=== PATIENT | male | born 1975 | race Caucasian/White ===

== ENCOUNTER → 2018-06-20 | Outpatient (CLI) | payer SELFPAY ==
--- NOTE | 2018-06-20 13:37 | Diagnostic Imaging Report ---
INDICATION: Chronic lower back pain. COMPARISON: None. FINDINGS: Frontal and lateral views of the lumbar spine were obtained. Alignment and vertebral heights are maintained. There is no fracture or destructive process. Multilevel degenerative disease is noted in the lumbar spine and consists primarily of multilevel facet arthropathy. Limited views of the abdomen demonstrate nonobstructive bowel gas pattern. IMPRESSION: 1. No acute fracture or dislocation of the lumbar spine. 2. Mild multilevel degenerative changes. Dictated by: Dictated on workstation # [id number]
== END ==
LOC: RAD FS 12:39
PROVIDERS: ATTEND Nurse Practitioner Family
DX: M47.816 Spondylosis without myelopathy or radiculopathy, lumbar region (principal)
CPT/HCPCS: 72100

== ENCOUNTER 2019-10-03 16:03 | Emergency (ER) | payer SELFPAY ==
[~2019-10-03] VITALS: Ht 182.8 cm; Wt 150.5 kg
[~2019-10-03 16:03] MED LIST: PARO20TA57 PO
[2019-10-03] MEDS ORDERED: NS IV 1000 ML 1,000 ML IV STA (16:10)
--- NOTE | 2019-10-03 16:13 | ED General ---
General Stated Complaint: ABD/CHEST PAIN Source of Information: Patient, Old Records, RN/MD History of Present Illness Date Seen by Provider: Oct 03, 2019 Time Seen by Provider: 16:05 Initial Comments This patient is a 44-year-old male that presents to the emerge from for epigastric discomfort after meals. States his big ongoing for some time states he only improves if he takes a lot of ibuprofen and Gas-X. Patient does have an outpatient scheduled ultrasound in 2 days. Patient states he ate about an hour to 2 hours ago and has been hurting ever since. We'll do medical evaluation treatment is needed. Timing/Duration: Changing Over Time, Getting Worse Severity: Moderate Modifying Factors: improves with Medication Associated Systoms: No Denies Symptoms, No Chest Pain, No Cough, No Diaphoresis, No Fever/Chills, No Headaches, No Loss of Appetite, No Malaise, No Nausea/Vomiting, No Rash, No Seizure, No Shortness of Air, No Syncope, No Weakness, No Other Allergies and Home Medications Allergies Coded Allergies: influenza virus vaccine ts [id number] (36 mos,up) (Unverified Allergy, Unknown, 03/14/14) neomycin (Unverified Allergy, Unknown, 03/14/14) pseudoephedrine (Unverified Allergy, Unknown, 03/14/14) triprolidine (Unverified Allergy, Unknown, 03/14/14) Home Medications Paroxetine Hcl 20 Mg Tablet, 20 MG PO DAILY, (Reported) Patient Home Medication List Home Medication List Reviewed: Yes Review of Systems Review of Systems Constitutional: No no symptoms reported; see HPI; No chills, No diaphoresis, No dizziness, No fever, No malaise, No weakness, No weight gain, No weight loss, No other EENTM: No see HPI, No no symptoms reported, No ear discharge, No hearing loss, No ear pain, No blurred vision, No double vision, No eye pain, No tearing, No vision loss, No dental problems, No hoarseness, No mouth pain, No mouth swelling, No epistaxis, No nose congestion, No nose pain, No throat pain, No throat swelling, No other Respiratory: No no symptoms reported, No see HPI, No cough, No dyspnea on exertion, No hemoptysis, No orthopnea, No phlegm, No short of breath, No stridor, No wheezing, No other Cardiovascular: No no symptoms reported, No see HPI, No chest pain, No edema, No Hx of Intervention, No palpitations, No syncope, No vascular heart diseas, No other Gastrointestinal: LUQ, RLQ, abdominal pain Musculoskeletal: No no symptoms reported, No see HPI, No back pain, No gout, No joint pain, No joint swelling, No muscle pain, No muscle stiffness, No muscle cramps, No muscle twitching, No muscle weakness, No neck pain, No other Skin: No no symptoms reported, No see HPI, No change in color, No change in hair/nails, No dryness, No hx of skin cancer, No lesions, No lumps, No pruritus, No rash, No other All Other Systems Reviewed Negative Unless Noted: Yes Past Coueblg-Dkcbgs-Gggtkf Hx Patient Social History Recent Foreign Travel: No Contact w/Someone Who Travel: No Seasonal Allergies Seasonal Allergies: Yes Past Medical History Orthopedic Anxiety, Depression Physical Exam Vital Signs Vital Signs - First Documented 10/03/19 16:06 Temp 37.0 Pulse 87 Resp 18 B/P (MAP) 132/83 (99) Pulse Ox 95 O2 Delivery Room Air Capillary Refill : Height, Weight, BMI Height: 6'" Weight: 296lbs. oz. 134.425836cc; BMI Method: General Appearance: No Apparent Distress, WD/WN Respiratory: Chest Non Tender, Lungs Clear, Normal Breath Sounds, No Accessory Muscle Use, No Respiratory Distress Cardiovascular: Regular Rate, Rhythm, No Edema, No Gallop, No JVD, No Murmur, Normal Peripheral Pulses Gastrointestinal: Normal Bowel Sounds, No Organomegaly, No Pulsatile Mass, Soft, Tenderness (in the epigastrium and right upper quadrant.) Neurologic/Psychiatric: Alert, Oriented x3, No Motor/Sensory Deficits, Normal Mood/Affect Progress/Results/Core Measures Suspected Sepsis SIRS Temperature: Pulse: Respiratory Rate: Laboratory Tests 10/03/19 16:20: White Blood Count 7.5 Blood Pressure / Mean: Laboratory Tests 10/03/19 16:20: Creatinine 1.05, Platelet Count 263, Total Bilirubin 0.3 Results/Orders Lab Results Laboratory Tests Test 10/03/19 16:20 Range/Units White Blood Count 7.5 4.3-11.0 10^3/uL Red Blood Count 5.12 4.35-5.85 10^6/uL Hemoglobin 14.8 13.3-17.7 G/DL Hematocrit 45 40-54 % Mean Corpuscular Volume 88 80-99 FL Mean Corpuscular Hemoglobin 29 25-34 PG Mean Corpuscular Hemoglobin Concent 33 32-36 G/DL Red Cell Distribution Width 14.0 10.0-14.5 % Platelet Count 263 130-400 10^3/uL Mean Platelet Volume 10.7 H 7.4-10.4 FL Neutrophils (%) (Auto) 63 42-75 % Lymphocytes (%) (Auto) 27 12-44 % Monocytes (%) (Auto) 8 0-12 % Eosinophils (%) (Auto) 2 0-10 % Basophils (%) (Auto) 0 0-10 % Neutrophils # (Auto) 4.7 1.8-7.8 X 10^3 Lymphocytes # (Auto) 2.0 1.0-4.0 X 10^3 Monocytes # (Auto) 0.6 0.0-1.0 X 10^3 Eosinophils # (Auto) 0.2 0.0-0.3 10^3/uL Basophils # (Auto) 0.0 0.0-0.1 10^3/uL Sodium Level 143 135-145 MMOL/L Potassium Level 4.1 3.6-5.0 MMOL/L Chloride Level 107 98-107 MMOL/L Carbon Dioxide Level 23 21-32 MMOL/L Anion Gap 13 5-14 MMOL/L Blood Urea Nitrogen 19 H 7-18 MG/DL Creatinine 1.05 0.60-1.30 MG/DL Estimat Glomerular Filtration Rate > 60 BUN/Creatinine Ratio 18 Glucose Level 106 H 70-105 MG/DL Calcium Level 9.2 8.5-10.1 MG/DL Corrected Calcium 8.9 8.5-10.1 MG/DL Total Bilirubin 0.3 0.1-1.0 MG/DL Aspartate Amino Transf (AST/SGOT) 25 5-34 U/L Alanine Aminotransferase (ALT/SGPT) 37 0-55 U/L Alkaline Phosphatase 110 40-136 U/L Total Protein 7.5 6.4-8.2 GM/DL Albumin 4.4 3.2-4.5 GM/DL My Orders Orders - TYE ABDI MD Cbc With Automated Diff (10/03/19 16:10) Comprehensive Metabolic Panel (10/03/19 16:10) Ed Iv/Invasive Line Start (10/03/19 16:10) Ns Iv 1000 Ml (Sodium Chloride 0.9%) (10/03/19 16:10) Ondansetron Injection (Zofran Injectio (10/03/19 16:15) Ketorolac Injection (Toradol Injection) (10/03/19 16:23) Ketorolac Injection (Toradol Injection) (10/03/19 16:30) Medications Given in ED Current Medications Medications Dose Ordered Sig/Fiorella Route Start Time Stop Time Status Last Admin Dose Admin Ketorolac Tromethamine 15 mg ONCE ONCE IVP 10/03/19 16:30 10/03/19 16:31 DC 10/03/19 16:30 15 MG Ondansetron HCl 4 mg ONCE ONCE IVP 10/03/19 16:15 10/03/19 16:16 DC 10/03/19 16:29 4 MG Vital Signs/I&O 10/03/19 16:06 Temp 37.0 Pulse 87 Resp 18 B/P (MAP) 132/83 (99) Pulse Ox 95 O2 Delivery Room Air Capillary Refill : Progress Note : Time: 17:21 Progress Note This patient is pain-free after IV Toradol. Patient has negative labs negative white count negative liver enzymes. However the patient does describe symptoms related to food most likely having gallbladder disease or cholelithiasis. Patient does have a scheduled outpatient ultrasound on Tuesday. Nursing staff informs me that the patient's family has called the emergency department are very upset because we do not have imaging available. I did have a long discussion with patient about findings. He understands that he needs to monitor his diet closely and have clear liquid diet. In the follow-up as scheduled for his outpatient ultrasound. Patient will be prescribed diclofenac as needed for pain and watch his diet closely. Patient will be discharged home with family patient states understanding all instructions. Departure Impression Primary Impression: Abdominal pain Additional Impression: Biliary colic Disposition: 01 HOME, SELF-CARE Condition: Stable Departure-Patient Inst. Decision time for Depature: 17:23 Referrals: [facility] (PCP/Family) Primary Care Physician Patient Instructions: Gallstones (DC) Add. Discharge Instructions: Encourage clear liquid diet. Take medications as instructed. Understand eating greasy of fatty food is what exacerbates her symptoms. Follow-up outpatient ultrasound as scheduled on Tuesday. Follow-up with your PCP in 2-3 days as needed. Scripts Diclofenac Sodium (Diclofenac Sodium) 75 Mg Tablet. 75 MG PO BID for 10 Days, #20 TAB 0 Refills Prov: TYE ABDI MD 10/03/19 TYE ABDI MD Oct 03, 2019 16:13
[2019-10-03] MEDS ORDERED: KETOROLAC 60 MG/2 ML VIAL IV ONE (16:15)
[2019-10-03] MEDS ORDERED: ONDANSETRON 4 MG/2 ML (SDV) Z0FRAN IVP ONE (16:15)
[2019-10-03] MEDS ORDERED: KETOROLAC 15 MG/ML VIAL ONE (16:23)
[2019-10-03 16:28] LABS: BASOPHILS % (AUTO) 0 % (0-10); EOSINOPHILS # (AUTO) 0.2 10^3/uL (0.0-0.3); EOSINOPHILS % (AUTO) 2 % (0-10); HEMATOCRIT 45 % (40-54); HEMOGLOBIN 14.8 G/DL (13.3-17.7); LYMPHOCYTES % (AUTO) 27 % (12-44); MEAN CORPUSCULAR HEMOGLOBIN 29 PG (25-34); MEAN CORPUSCULAR HGB CONC 33 G/DL (32-36); MEAN CORPUSCULAR VOLUME 88 FL (80-99); MEAN PLATELET VOLUME 10.7 FL (7.4-10.4); MONOCYTES # (AUTO) 0.6 X 10^3 (0.0-1.0); MONOCYTES % (AUTO) 8 % (0-12); NEUTROPHILS # (AUTO) 4.7 X 10^3 (1.8-7.8); NEUTROPHILS % (AUTO) 63 % (42-75); PLATELET COUNT 263 10^3/uL (130-400); WHITE BLOOD COUNT 7.5 10^3/uL (4.3-11.0)
[2019-10-03] MEDS ORDERED: KETOROLAC 15 MG/ML VIAL IVP ONE (16:30)
[2019-10-03 16:48] LABS: CARBON DIOXIDE 23 MMOL/L (21-32); CHLORIDE 107 MMOL/L (98-107); POTASSIUM 4.1 MMOL/L (3.6-5.0); SODIUM 143 MMOL/L (135-145)
[2019-10-03 16:49] LABS: ALANINE AMINOTRANSFERASE 37 U/L (0-55); ALBUMIN 4.4 GM/DL (3.2-4.5); ALKALINE PHOSPHATASE 110 U/L (40-136); BILIRUBIN,TOTAL 0.3 MG/DL (0.1-1.0); BUN/CREATININE RATIO 18; CALCIUM 9.2 MG/DL (8.5-10.1); CREATININE SERUM 1.05 MG/DL (0.60-1.30); GFR ESTIMATED > 60; GLUCOSE 106 MG/DL (70-105); TOTAL PROTEIN 7.5 GM/DL (6.4-8.2)
--- NOTE | 2019-10-03 17:15 | NUR ---
This RN answered a phone call rec'd from patient's "" reporting she is on her way to hospital to pick him up. She quotes, "I hear you gave him some Toradol shot and refuse to do an appropriate needed radiology imaging tests so I am gonna bring my mother and we are going to get him and get down to [place] right away." "So get him ready as we know we can't come in but we are going to where someone will treat the patient with appropriate test." Pt's continues to yell and I advised her as I placed her on hold I would speak with his nurse and
--- NOTE | 2019-10-03 17:20 | NUR ---
Call has been disrupted by a hang-up. Dr went to patient's room to discuss this phone call and what was conveyed to her from him. Pt was advised liver enzymes are normal, he describes stomach issues with eating, pt has a scheduled ultrasound in [place] on Tuesday, and patient agreed he is pain free after Toradol. Pt is told everything his has called to tell staff. Dr encourages patient to follow a very strict low fat, no spice, GB restriction diet and increase fluid intake. Pt is to keep appt for GB appt. Tuesday.
[2019-10-03] MEDS ORDERED: DICL75TA2 PO (17:24)
--- NOTE | 2019-10-03 17:30 | NUR ---
called back into ER, call sent to this RN for consistancy of communication. states, "I am here in parking lot and I do not see him so send him out." The was informed the patient is walking to registration desk to sign out as he is discharged. The was told the patient has more information to share regarding the recommended outpatient GB sono which [facility] has no ultrasound dept. The patient has this test scheduled for Tuesday at [place]. The [place] ER was called by Dr Burgess and spoke with Dr Longo on duty and there is no ultrasound coverage in [facility]. The patient did become pain free after Toradol when re-assessed.
[2019-10-03 17:31] VITALS: BP 117/58
== END 2019-10-03 17:31 | disposition home or self-care (01) ==
LOC: EDUNIT# 16:03 → ER FS 16:04
DX: K80.50 Calculus of bile duct without cholangitis or cholecystitis without obstruction (principal); F41.9 Anxiety disorder, unspecified; F32.9 Major depressive disorder, single episode, unspecified; Z88.7 Allergy status to serum and vaccine; Z88.1 Allergy status to other antibiotic agents; Z88.8 Allergy status to other drugs, medicaments and biological substances
CPT/HCPCS: 36415; 80053; 85025

== ENCOUNTER 2019-10-23 20:21 | Emergency (ER) | payer OTHER ==
[~2019-10-23] VITALS: Ht 182.8 cm; Wt 149.6 kg
[~2019-10-23 20:21] MED LIST changes: +DICL75TA2 PO
[2019-10-23] MEDS ORDERED: NS IV 500 ML 500 ML IV ONE (20:42)
[2019-10-23] MEDS ORDERED: FAMOTIDINE 20MG/2ML IV (PEPCID) IV STA (20:42)
[2019-10-23] MEDS ORDERED: SERT50TA2 PO (20:43)
[2019-10-23] MEDS ORDERED: LIDOCAINE 2% VISCOUS 15 ML UDC PO ONE (20:45)
[2019-10-23] MEDS ORDERED: ANTACID SUSP 30 ML UDC (MYLANTA) PO ONE (20:45)
[2019-10-23 20:49] LABS: BASOPHILS % (AUTO) 1 % (0-10); EOSINOPHILS # (AUTO) 0.3 10^3/uL (0.0-0.3); EOSINOPHILS % (AUTO) 4 % (0-10); HEMATOCRIT 43 % (40-54); HEMOGLOBIN 14.2 G/DL (13.3-17.7); LYMPHOCYTES # (AUTO) 2.5 X 10^3 (1.0-4.0); LYMPHOCYTES % (AUTO) 32 % (12-44); MEAN CORPUSCULAR HEMOGLOBIN 29 PG (25-34); MEAN CORPUSCULAR HGB CONC 33 G/DL (32-36); MEAN CORPUSCULAR VOLUME 87 FL (80-99); MEAN PLATELET VOLUME 10.3 FL (7.4-10.4); MONOCYTES # (AUTO) 0.7 X 10^3 (0.0-1.0); MONOCYTES % (AUTO) 9 % (0-12); NEUTROPHILS # (AUTO) 4.2 X 10^3 (1.8-7.8); NEUTROPHILS % (AUTO) 55 % (42-75); PLATELET COUNT 235 10^3/uL (130-400); RED CELL DISTRIBUTION WIDTH 13.8 % (10.0-14.5); WHITE BLOOD COUNT 7.6 10^3/uL (4.3-11.0)
--- NOTE | 2019-10-23 20:49 | ED Abdominal Pain ---
General Chief Complaint: Abdominal/GI Problems Stated Complaint: SIDE PAIN Nursing Triage Note: PATIENT STATES THAT 3MO AGO HE ATE AND SINCE THAT TIME HE HAS EXPERIENCED BLOATING, NAUSEA AND ABD PAIN. IT FIRST STARTED ON THE LEFT SIDE AND OVER THE PAST TWO WEEKS IT HAS BEEN ON THE RIGHT SIDE. HE HAS HAD AN ULTRASOUND OF THE ABD THAT WAS CLEAR. HE HAS SEEN DR. CAMARA AND IS AWAITING FINANCIAL ASSISTANCE TO BE ABLE TO SCHEDULE THE EGD. HE DENIES NAUSEA/VOMIT AND FEVER TODAY. Sepsis Screen: No Definite Risk Source of Information: Patient Exam Limitations: No Limitations History of Present Illness Date Seen by Provider: Oct 23, 2019 Time Seen by Provider: 20:29 Initial Comments Patient resists ER by private conveyance from home with chief complaint of right upper quadrant abdominal pain that brought him to tears tonight. He says this pain episode is been going on for the past 2-3 weeks constant. He got up to about a 9 out of 10 and is now about a 5 out of 10. He says it started about 4:30 this afternoon so he took a dose of diclofenac which did not help. He tried eating some pudding, Jell-O, rice and this did not help. He had a loose nonbloody watery stool. The pain got so bad he decided to come in to the ER. He says been having problems with this pain for the past 3 months and has been worked up and had H. 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 He says meat sets his pain off the worst. He's not having any nausea fever chills cough shortness of breath. He's had no abdominal surgeries in the past. He is being worked up outpatient by Dr. Camara with a HIDA scan scheduled and they are working on getting an EGD done. He is taking omeprazole daily for the past several weeks. His primary care provider Mcculloch at [facility]. He has not attempted any antacids tonight but he did take Gas-X without success. History of prediabetes and hyperlipidemia without history of pancreatitis. No significant family history. Allergies and Home Medications Allergies Coded Allergies: influenza virus vaccine ts [id number] (36 mos,up) (Unverified Allergy, Unknown, 03/14/14) neomycin (Unverified Allergy, Unknown, 03/14/14) pseudoephedrine (Unverified Allergy, Unknown, 03/14/14) triprolidine (Unverified Allergy, Unknown, 03/14/14) Home Medications Diclofenac Sodium 75 Mg Tablet.dr, 75 MG PO BID Prescribed by: TYE ABDI on 10/03/19 5782 Sertraline HCl 50 Mg Tablet, 50 MG PO DAILY, (Reported) Patient Home Medication List Home Medication List Reviewed: Yes Review of Systems Review of Systems Constitutional: No chills, No diaphoresis EENTM: No Blurred Vision, No Double Vision Respiratory: Denies Cough, Denies Orthopnea Cardiovascular: Denies Chest Pain, Denies Edema Gastrointestinal: See HPI, Abdominal Pain; Denies Constipated; Diarrhea; Denies Nausea, Denies Poor Fluid Intake, Denies Vomiting Genitourinary: Denies Burning, Denies Discharge Musculoskeletal: No back pain, No joint pain Skin: No pruritus, No rash Psychiatric/Neurological: Denies Headache, Denies Numbness All Other Systems Reviewed Negative Unless Noted: Yes Past Mxbqquv-Mticte-Xoarus Hx Patient Social History Alcohol Use: Denies Use Recreational Drug Use: No Smoking Status: Never a Smoker 2nd Hand Smoke Exposure: No Recent Foreign Travel: No Contact w/Someone Who Travel: No Recent Infectious Disease Expo: No Recent Hopitalizations: No Seasonal Allergies Seasonal Allergies: Yes Past Medical History Surgeries: Yes (Vericose vein ligation, boutonniere repair) Orthopedic, Vascular Surgery Respiratory: No Cardiac: Yes High Cholesterol, Hypertension Neurological: No Genitourinary: No Gastrointestinal: Yes Gastroesophageal Reflux Musculoskeletal: No Endocrine: No HEENT: No Cancer: No Psychosocial: Yes Anxiety, Depression Integumentary: No Blood Disorders: No Physical Exam Vital Signs Vital Signs - First Documented 10/23/19 20:32 Temp 36.8 Pulse 79 Resp 22 B/P (MAP) 134/103 (113) Pulse Ox 96 O2 Delivery Room Air Capillary Refill : Less Than 3 Seconds Height/Weight/BMI Height: 6'" Weight: 296lbs. oz. 134.206400nj; 44.00 BMI Method: General Appearance: WD/WN, moderate distress, obese HEENT: PERRL/EOMI, pharynx normal Neck: full range of motion, normal inspection Respiratory: lungs clear, normal breath sounds, no respiratory distress, no accessory muscle use Cardiovascular: normal peripheral pulses, regular rate, rhythm, no edema Peripheral Pulses: 2+ Radial Pulses (R), 2+ Radial Pulses (L) Gastrointestinal: normal bowel sounds, soft, no organomegaly, tenderness (right upper quadrant and epigastric region tender to palpation. Right flank mildly tender palpation.) Neurologic/Psychiatric: alert, normal mood/affect, oriented x 3 Skin: normal color, warm/dry Progress/Results/Core Measures Results/Orders Lab Results Laboratory Tests Test 10/23/19 20:45 Range/Units White Blood Count 7.6 4.3-11.0 10^3/uL Red Blood Count 4.89 4.35-5.85 10^6/uL Hemoglobin 14.2 13.3-17.7 G/DL Hematocrit 43 40-54 % Mean Corpuscular Volume 87 80-99 FL Mean Corpuscular Hemoglobin 29 25-34 PG Mean Corpuscular Hemoglobin Concent 33 32-36 G/DL Red Cell Distribution Width 13.8 10.0-14.5 % Platelet Count 235 130-400 10^3/uL Mean Platelet Volume 10.3 7.4-10.4 FL Neutrophils (%) (Auto) 55 42-75 % Lymphocytes (%) (Auto) 32 12-44 % Monocytes (%) (Auto) 9 0-12 % Eosinophils (%) (Auto) 4 0-10 % Basophils (%) (Auto) 1 0-10 % Neutrophils # (Auto) 4.2 1.8-7.8 X 10^3 Lymphocytes # (Auto) 2.5 1.0-4.0 X 10^3 Monocytes # (Auto) 0.7 0.0-1.0 X 10^3 Eosinophils # (Auto) 0.3 0.0-0.3 10^3/uL Basophils # (Auto) 0.0 0.0-0.1 10^3/uL Sodium Level 142 135-145 MMOL/L Potassium Level 4.2 3.6-5.0 MMOL/L Chloride Level 108 H 98-107 MMOL/L Carbon Dioxide Level 24 21-32 MMOL/L Anion Gap 10 5-14 MMOL/L Blood Urea Nitrogen 19 H 7-18 MG/DL Creatinine 1.02 0.60-1.30 MG/DL Estimat Glomerular Filtration Rate > 60 BUN/Creatinine Ratio 19 Glucose Level 109 H 70-105 MG/DL Calcium Level 8.9 8.5-10.1 MG/DL Corrected Calcium 8.8 8.5-10.1 MG/DL Total Bilirubin 0.3 0.1-1.0 MG/DL Aspartate Amino Transf (AST/SGOT) 37 H 5-34 U/L Alanine Aminotransferase (ALT/SGPT) 53 0-55 U/L Alkaline Phosphatase 104 40-136 U/L C-Reactive Protein High Sensitivity 0.47 0.00-0.50 MG/DL Total Protein 7.4 6.4-8.2 GM/DL Albumin 4.1 3.2-4.5 GM/DL Lipase 37 8-78 U/L My Orders Orders - RENATA BLOCK Cbc With Automated Diff (10/23/19 20:42) Comprehensive Metabolic Panel (10/23/19 20:42) Hs C Reactive Protein (10/23/19 20:42) Lipase (10/23/19 20:42) Ua Culture If Indicated (10/23/19 20:42) Lidocaine 2% Viscous 15 Ml (Xylocaine Vi (10/23/19 20:45) Antacid Suspension (Mylanta Suspension (10/23/19 20:45) Famotidine Injection (Pepcid Injection) (10/23/19 20:42) Ed Iv/Invasive Line Start (10/23/19 20:42) Ns Iv 500 Ml (Sodium Chloride 0.9%) (10/23/19 20:42) Fentanyl Injection (Sublimaze Injection (10/23/19 21:15) Ct Abdomen/Pelvis W (10/23/19 21:08) Iohexol Injection (Omnipaque 350 Mg/Ml 1 (10/23/19 21:15) Received Contrast (Hold Metformin- Contr (10/23/19 21:15) Ns (Ivpb) (Sodium Chloride 0.9% Ivpb Bag (10/23/19 21:15) Medications Given in ED Current Medications Medications Dose Ordered Sig/Fiorella Route Start Time Stop Time Status Last Admin Dose Admin Al Hydrox/Mg Hydrox/Simethicone 30 ml ONCE ONCE PO 10/23/19 20:45 10/23/19 20:46 DC 10/23/19 20:49 30 ML Fentanyl Citrate 50 mcg ONCE ONCE IVP 10/23/19 21:15 10/23/19 21:16 DC 10/23/19 21:13 50 MCG Iohexol 100 ml ONCE ONCE IV 10/23/19 21:15 10/23/19 21:16 DC 10/23/19 21:26 100 ML Lidocaine HCl 15 ml ONCE ONCE PO 10/23/19 20:45 10/23/19 20:46 DC 10/23/19 20:49 15 ML Sodium Chloride 500 ml @ 0 mls/hr Q0M ONCE IV 10/23/19 20:42 10/23/19 20:44 DC 10/23/19 20:49 500 MLS/HR Vital Signs/I&O 10/23/19 20:32 Temp 36.8 Pulse 79 Resp 22 B/P (MAP) 134/103 (113) Pulse Ox 96 O2 Delivery Room Air Blood Pressure Mean: 113 Progress Progress Note #1: Time: 20:50 Progress Note Kidney stone. Check some labs including a lipase. Give him some fluids IV in anticipation of the potential for needing a CT scan if his pain is not relieved with a GI cocktail. Progress Note #2: Time: 22:04 Progress Note Pain reduced to 1 out of 10 after fentanyl. He is comfortable with aseptic vital signs and an nonsurgical abdominal exam on reexamination. Plan to allow him to discharge with a couple hydrocodone and continue to pursue workup through endoscopy, HIDA scan etc. through Dr. Camara's office. Patient is in agreement with the plan. Diagnostic Imaging Diagonstic Imaging: CT Plain Films/CT/US/NM/MRI: abdomen, pelvis Comments NAME: HILARIA GUSTAFSON V MED REC#: [id number] PT STATUS: REG ER : 1975 PHYSICIAN: RENATA BLOCK MD ADMIT DATE: 10/23/19/ER Draft Date of Exam:10/23/19 CT ABDOMEN/PELVIS W PROCEDURE: CT abdomen and pelvis with contrast, 10/23/2019. TECHNIQUE: Multiple contiguous axial images were obtained through the abdomen and pelvis after administration of intravenous contrast. Auto Exposure Controls were utilized during the CT exam to meet ALARA standards for radiation dose reduction. INDICATION: Dull ache for last the 3 months in the right upper quadrant. Possible gallbladder problems. COMPARISON: None. FINDINGS: Diffuse fatty infiltration is seen throughout the liver which is otherwise unremarkable. The gallbladder is unremarkable by CT standards. The spleen is normal. Pancreas and adrenal glands unremarkable. Kidneys unremarkable. There is a normal appearance of the appendix. There is no inflammatory change about the bowel loops. No free air or fluid in the abdomen or pelvis. A few mildly prominent thick-walled small bowel loops in the midabdomen, perhaps due to a mild enteritis, correlate with symptoms. No obstructive process is seen. There is no lymphadenopathy. No acute osseous of abnormality. Lung bases clear. IMPRESSION: 1. Possible mild enteritis with other incidental findings, as above. Dictated on workstation # [id number] Dict: 10/23/192144 Trans: 10/23/192152 [facility] [id number] Interpreted by: ABIMAEL FLOWERS MD Electronically signed by: Reviewed: Reviewed by Me Departure Impression Primary Impression: Enteritis Disposition: HOME, SELF-CARE Condition: Stable Departure-Patient Inst. Decision time for Depature: 22:01 Referrals: NO,LOCAL PHYSICIAN (PCP) Primary Care Physician MATY DAVILA APRN (Family) Primary Care Physician Patient Instructions: [id number] Add. Discharge Instructions: Give some nonspecific findings on the CT which could be related to a viral infection or inflammatory changes to your intestines. Endoscopy through Dr. Camara's office would be the next step for diagnosis. If you're pain becomes severe, intractable you may trial hydrocodone one tablet every 6 hours as needed. Will cause constipation and drowsiness. All discharge instructions reviewed with patient and/or family. Voiced understanding. Scripts Hydrocodone/Acetaminophen (Hydrocodone-Acetamin 5-325 mg) 1 Each Tablet 1 EACH PO Q6H PRN for PAIN-BREAKTHROUGH, #8 TAB 0 Refills Prov: RENATA BLOCK 10/23/19 RENATA BLOCK Oct 23, 2019 20:48
[2019-10-23 21:07] LABS: ALANINE AMINOTRANSFERASE 53 U/L (0-55); ALBUMIN 4.1 GM/DL (3.2-4.5); ALKALINE PHOSPHATASE 104 U/L (40-136); BILIRUBIN,TOTAL 0.3 MG/DL (0.1-1.0); BUN/CREATININE RATIO 19; CALCIUM 8.9 MG/DL (8.5-10.1); CARBON DIOXIDE 24 MMOL/L (21-32); CHLORIDE 108 MMOL/L (98-107); CREATININE SERUM 1.02 MG/DL (0.60-1.30); GFR ESTIMATED > 60; GLUCOSE 109 MG/DL (70-105); LIPASE 37 U/L (8-78); POTASSIUM 4.2 MMOL/L (3.6-5.0); SODIUM 142 MMOL/L (135-145); TOTAL PROTEIN 7.4 GM/DL (6.4-8.2)
[2019-10-23] MEDS ORDERED: HOLD METFORMIN - RECEIVED CONTRAST 20 ML VIAL IV SCH (21:15)
[2019-10-23] MEDS ORDERED: NS 100 ML (IVPB) BAG IV ONE (21:15)
[2019-10-23] MEDS ORDERED: fentaNYL INJECTION 100 MCG/2 ML AMP IVP ONE (21:15)
[2019-10-23] MEDS ORDERED: IOHEXOL 350 MG/ML 100 ML (OMNIPAQUE 350) VIAL IV ONE (21:15)
--- NOTE | 2019-10-23 21:54 | Diagnostic Imaging Report ---
PROCEDURE: CT abdomen and pelvis with contrast, 10/23/2019. TECHNIQUE: Multiple contiguous axial images were obtained through the abdomen and pelvis after administration of intravenous contrast. Auto Exposure Controls were utilized during the CT exam to meet ALARA standards for radiation dose reduction. INDICATION: Dull ache for last the 3 months in the right upper quadrant. Possible gallbladder problems. COMPARISON: None. FINDINGS: Diffuse fatty infiltration is seen throughout the liver which is otherwise unremarkable. The gallbladder is unremarkable by CT standards. The spleen is normal. Pancreas and adrenal glands unremarkable. Kidneys unremarkable. There is a normal appearance of the appendix. There is no inflammatory change about the bowel loops. No free air or fluid in the abdomen or pelvis. A few mildly prominent thick-walled small bowel loops in the midabdomen, perhaps due to a mild enteritis, correlate with symptoms. No obstructive process is seen. There is no lymphadenopathy. No acute osseous of abnormality. Lung bases clear. IMPRESSION: 1. Possible mild enteritis with other incidental findings, as above. Dictated by: Dictated on workstation # [id number]
--- NOTE | 2019-10-23 22:00 | NUR ---
PATIENT ASKED MULTIPLE TIMES TO PROVIDE A URINE SAMPLE AND CONTINUES TO STATE THAT HE URINATED "RIGHT BEFORE HE GOT HERE" AND THEREFORE IS UNABLE TO URINATE.
[2019-10-23] MEDS ORDERED: HYDR-83 PO (22:06)
[2019-10-23 22:10] VITALS: BP 129/90
== END 2019-10-23 22:10 | disposition home or self-care (01) ==
LOC: EDUNIT# 20:21 → ER 20:23
DX: K52.9 Noninfective gastroenteritis and colitis, unspecified (principal); K21.9 Gastro-esophageal reflux disease without esophagitis; F41.9 Anxiety disorder, unspecified; F32.9 Major depressive disorder, single episode, unspecified; Z88.7 Allergy status to serum and vaccine; Z88.8 Allergy status to other drugs, medicaments and biological substances
CPT/HCPCS: 36415; 74177; 80053; 83690; 85025; 86141; 96374; 96375

== ENCOUNTER → 2019-11-07 | Outpatient (CLI) | payer OTHER ==
[~2019-11-07] MED LIST changes: +ATOR10TA66 PO; +CETI10TA17 PO; +HYDR-83 PO; +IBUP-2473 PO; +LISI-552 PO; +OMEP40CA27 PO; +SERT50TA2 PO
== END ==
LOC: LAB FS 08:27
PROVIDERS: ATTEND Surgery
DX: Z01.812 Encounter for preprocedural laboratory examination (principal); R10.13 Epigastric pain; Z20.828 Contact with and (suspected) exposure to other viral communicable diseases
CPT/HCPCS: 87635

== ENCOUNTER 2019-11-08 11:16 | Outpatient (RCR) | payer OTHER ==
[~2019-11-08] VITALS: Ht 182 cm; Wt 148.6 kg
== END 2019-11-08 11:18 | disposition home or self-care (01) ==
LOC: PREOP 11:16
PROVIDERS: ATTEND Surgery
DX: Z01.818 Encounter for other preprocedural examination (principal)

== ENCOUNTER 2019-11-12 06:54 | Day surgery (SDC) | payer OTHER ==
[~2019-11-12] VITALS: Ht 182 cm; Wt 148.6 kg
[2019-11-12] MEDS ORDERED: LACTATED RINGERS 1,000 ML IV ONE (07:06)
[2019-11-12] MEDS ORDERED: PROPOFOL INJECTION 50 ML IV ONE (07:25)
[2019-11-12] MEDS ORDERED: MIDAZOLAM 2 MG/2 ML (VERSED) VIAL ONE (07:25)
[2019-11-12] MEDS ORDERED: HURRICAINE EXT TUBE (BENZOCAINE) XX PRN (07:30)
[2019-11-12] MEDS ORDERED: LACTATED RINGERS 1,000 ML IV STA (07:30)
[2019-11-12 07:33] VITALS: BP 176/88
[2019-11-12] MEDS ORDERED: HURRICAINE EXT TUBE (BENZOCAINE) ONE (07:46)
--- NOTE | 2019-11-12 08:22 | Progress Note-Pre Operative ---
Pre-Operative Progress Note H&P Reviewed The H&P was reviewed, patient examined and no changes noted. Time Seen by Provider: 08:18 Date H&P Reviewed: Nov 12, 2019 Time H&P Reviewed: 08:15 Pre-Operative Diagnosis: Epigastric and RUQ pain ECHO CAMARA DO Nov 12, 2019 08:22
[2019-11-12 08:35] VITALS: BP 140/70
--- NOTE | 2019-11-12 08:38 | Progress Note-Post Operative ---
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
--- NOTE | 2019-11-12 08:39 | Endoscopy Discharge Instruct ---
Endo Procedure/Findings Findings 1.: Gastritis 2.: Hiatal Hernia Discharge Instructions - Activity: You might feel a little sleepy until tomorrow. This is due to the medicine you received to relax you. Until tomorrow, you should: NOT drive a car, operate machinery or power tools. NOT drink any alcoholic beverages. NOT make any important decisions or sign importortant papers. Do not return to work until tomorrow, unless otherwise instructed. Resume previous activities tomorrow. Diet: Start by taking liquids. If you tolerate liquids, advance to solid food. make an appointment for one week 2.: EGD in 1 year Notify Physician - If you experience excessive bleeding, unusual abdominal pain, fever, or chest pain, contact your doctor immediately. ECHO CAMARA DO Nov 12, 2019 08:39
[2019-11-12 08:40] VITALS: BP 138/67
[2019-11-12 08:45] VITALS: BP_SYST 140; BP_SYST 144; BP_DIAS 75; BP_DIAS 80
[2019-11-12 09:15] VITALS: BP 152/84
[2019-11-12 09:20] VITALS: BP 152/84
--- NOTE | 2019-11-12 11:53 | Anesthesia-General Post-Op ---
MAC Patient Condition Mental Status/LOC: Same as Preop Cardiovascular: Satisfactory Nausea/Vomiting: Absent Respiratory: Satisfactory Pain: Controlled Complications: Absent Post Op Complications Complications None Follow Up Care/Instructions Patient Instructions None needed. Anesthesiology Discharge Order Discharge Order Patient is doing well, no complaints, stable vital signs, no apparent adverse anesthesia problems. No complications reported per nursing. DOE GAY CRNA Nov 12, 2019 11:53
--- NOTE | 2019-11-13 03:05 | OPERATIVE REPORT ---
DATE OF SERVICE: PREOPERATIVE DIAGNOSES: Epigastric pain and right upper quadrant pain. POSTOPERATIVE DIAGNOSES: Gastritis and hiatal hernia. PROCEDURE: EGD with biopsy. SURGEON: Surendra Parrish DO PRODUCE SERVICE TEAM MEMBER: None. ANESTHESIA: IV sedation by CHILDHOOD DEVELOPMENT TEACHER. SPECIMEN: Biopsy of the antrum, biopsy of body of stomach, biopsy of the GE junction. BLOOD LOSS: Scant. FLUIDS: Per anesthesia. POSTOPERATIVE CONDITION: Stable. INDICATION FOR PROCEDURE: The patient is a 44-year-old male, who has been having epigastric pain and some right upper quadrant pain, needed a workup. FINDINGS: The patient had some pretty severe gastritis. He also had a hiatal hernia and possibly some esophagitis. PROCEDURE NOTE: After informed consent was obtained, the patient was brought to the endoscopy suite, placed in bed in the left lateral decubitus position. He was administered IV sedation by the CHILDHOOD DEVELOPMENT TEACHER, who then monitored his vitals the entire time, heart rate, blood pressure and pulse ox and the scope was inserted down the mouth through the esophagus and stomach. On the way down, noted some changes at the GE junction, took a picture. Pushed in towards the antrum, there is some gastritis at the antrum, pushed through into the duodenum, duodenum looked fine. Pulled back, did a biopsy of the antrum. Retroflexed the scope, saw small hiatal hernia, took a picture of this and then did a biopsy of body of stomach and then suctioned the air out of the stomach and pulled the scope up the esophagus and out the mouth. The patient tolerated the procedure, recovered in endoscopy suite. Job ID: [id number] DocumentID: [id number] Dictated Date: 11/12/2019 16:45:40 Marine Habitat Resource Specialist Date: 11/13/2019 03:04:28 Dictated By: SURENDRA PARRISH DO
== END 2019-11-12 09:20 | disposition home or self-care (01) ==
LOC: ENDO 06:54
PROVIDERS: ATTEND Surgery
DX: K29.50 Unspecified chronic gastritis without bleeding (principal); K44.9 Diaphragmatic hernia without obstruction or gangrene; K31.89 Other diseases of stomach and duodenum; K21.0 Gastro-esophageal reflux disease with esophagitis; I10 Essential (primary) hypertension; E11.9 Type 2 diabetes mellitus without complications; F41.9 Anxiety disorder, unspecified; E78.00 Pure hypercholesterolemia, unspecified; E78.5 Hyperlipidemia, unspecified; F32.9 Major depressive disorder, single episode, unspecified; K52.9 Noninfective gastroenteritis and colitis, unspecified; Z79.899 Other long term (current) drug therapy; Z88.8 Allergy status to other drugs, medicaments and biological substances

== ENCOUNTER → 2019-11-15 | Outpatient (CLI) | payer OTHER ==
[~2019-11-15] MED LIST changes: +CATHETER FLUSH 10 ML SYR IV PRN
--- NOTE | 2019-11-15 11:40 | Diagnostic Imaging Report ---
Indication: Abdominal pain Hepatobiliary scan with ejection 5.5 mCi of technetium 99m Choletec was given intravenously. 1 candidate and she was given 45 minutes There is homogeneous uptake of isotope throughout the liver. The cystic duct and common duct are both patent. The gallbladder ejection fraction was calculated at 23%. IMPRESSION: The cystic duct and common duct are both patent. Dictated by: Dictated on workstation # [id number]
== END ==
LOC: CARD 09:32
PROVIDERS: ATTEND Surgery
DX: R10.13 Epigastric pain (principal); R10.12 Left upper quadrant pain; R10.11 Right upper quadrant pain
CPT/HCPCS: 78227; A9537

== ENCOUNTER 2019-11-21 05:41 | Outpatient (RCR) | payer OTHER ==
[~2019-11-21] VITALS: Ht 182.9 cm; Wt 150.5 kg
[~2019-11-21 05:41] MED LIST changes: -CATHETER FLUSH 10 ML SYR IV PRN
[2019-11-22] MEDS ORDERED: ACHYD1T PO (12:12)
== END 2019-11-21 08:57 | disposition home or self-care (01) ==
LOC: PREOP 05:41
PROVIDERS: ATTEND Surgery
DX: Z01.818 Encounter for other preprocedural examination (principal)

== ENCOUNTER 2019-11-22 09:23 | Day surgery (SDC) | payer OTHER ==
[2019-11-22] VITALS (10 sets, daily range): BP systolic 114–147; BP diastolic 66–87
[~2019-11-22] VITALS: Ht 182.9 cm; Wt 150.5 kg
[~2019-11-22 09:23] MED LIST changes: +HYDR-3812 PO; -HYDR-83 PO
[2019-11-22] MEDS ORDERED: LACTATED RINGERS 1,000 ML IV PRN (09:28)
[2019-11-22] MEDS ORDERED: ceFAZolin 2 GM IV Premixed 50 ML IV ONE (09:30)
[2019-11-22] MEDS ORDERED: ceFAZolin 2 GM IV Premixed 50 ML ONE (09:55)
[2019-11-22] MEDS ORDERED: BUP/EPI 0.5% 1:200,000 (SENSORCAINE) 30 ML VIAL ONE (10:17)
[2019-11-22] MEDS ORDERED: IOPAMIDOL 61% 30 ML (ISOVUE 300) VIAL ONE (10:17)
--- NOTE | 2019-11-22 10:37 | Progress Note-Pre Operative ---
Pre-Operative Progress Note H&P Reviewed The H&P was reviewed, patient examined and no changes noted. Time Seen by Provider: 10:35 Date H&P Reviewed: Nov 22, 2019 Time H&P Reviewed: 10:35 Pre-Operative Diagnosis: Biliary Dyskinesia ECHO CAMARA DO Nov 22, 2019 10:37
[2019-11-22] MEDS ORDERED: NEOSTIGMINE 3 MG/3 ML VIAL ONE (10:52)
[2019-11-22] MEDS ORDERED: GLYCOPYRROLATE 0.2 MG/ML (ROBINUL) 2 ML VIAL ONE ×2 (10:52→12:23)
[2019-11-22] MEDS ORDERED: LIDOCAINE PF 2% 5 ML (XYLOCAINE) VIAL ONE (10:52)
[2019-11-22] MEDS ORDERED: ROCURONIUM 10 MG/ML 5 ML SYRINGE IV ONE (10:52)
[2019-11-22] MEDS ORDERED: ONDANSETRON 4 MG/2 ML (SDV) Z0FRAN ONE (10:52)
[2019-11-22] MEDS ORDERED: proPOfol 200 MG/20 ML (DIPRIVAN) VIAL IV ONE (10:52)
[2019-11-22] MEDS ORDERED: SEVOFLURANE (ULTANE) 15 ML INHAL SOLN ONE (10:52)
[2019-11-22] MEDS ORDERED: fentaNYL INJECTION 100 MCG/2 ML AMP ONE (10:53)
[2019-11-22] MEDS ORDERED: MIDAZOLAM 2 MG/2 ML (VERSED) VIAL ONE (10:53)
[2019-11-22] MEDS ORDERED: HYDROmorphone 2 MG/ML VIAL (DILAUDID) ONE (12:07)
--- NOTE | 2019-11-22 12:11 | Progress Note-Post Operative ---
Post-Operative Progess Note Surgeon (s)/Credentialing Coordinator (s) Surgeon ECHO CAMARA DO Credentialing Coordinator: Jacque Pre-Operative Diagnosis Biliary Dyskinesia Post-Operative Diagnosis same plus early RIH Procedure & Operative Findings Date of Procedure 11/22/19 Procedure Performed/Findings PROCEDURE: Laparoscopic cholecystectomy COMPLICATIONS: None. PROCEDURE: The patient was taken to the operating suite and was prepped and draped in sterile fashion. A surgical pause was performed. Just superior to the umbilicus, a 12 mm incision was made. Dissection was taken down to the fascia, which was then scored and grasped with a Selina and the abdomen was then entered. A 0 Vicryl suture was placed in a [id number]-[id number] fashion and a [place] trocar was placed and secured. Pneumoperitoneum was achieved. A 5mm trochar place in the subxyphoid and 2 in the right upper quadrant. The gallbladder was then grasped and elevated. The cystic duct, and cystic artery were then dissected out. Clip was placed on the distal portion of the cystic duct which was then partially transected. The duct was extremely small and gallbladder was distended, the small duct is probably the cause of his problems. It's one of the smallest I have seen. Clips were placed on proximal portion of the cystic duct and then the duct was then transected. Clips were placed along the proximal and distal portion of the cystic artery which was then transected. Hook cautery was used to dissect the gallbladder from the gallbladder fossa achieving hemostasis. The gallbladder was placed in an Endobag and removed through the 12 mm trocar site. The abdomen was then reinspected. Copious amounts of irrigation were used to irrigate the abdomen and there were no signs of active bleeding. Hemostasis had been achieved. The 12 mm fascial defect was then closed with 0 Vicryl suture that had been placed in a [id number] fashion. The abdomen was then desufflated, the trocars were removed. The abdomen was then washed and dried. The skin was then closed using 4-0 Monocryl in a subcuticular fashion. The abdomen was washed and dried and Skin Affix was place over incisions. Patient tolerated the procedure well without any complications and was taken to the recovery room in stable condition. Anesthesia Type GET Estimated Blood Loss Estimated blood loss (mL): scant Specimens/Packing Specimens Removed GB and contents ECHO CAMARA DO Nov 22, 2019 12:11
[2019-11-22] MEDS ORDERED: ACHYD1T PO (12:12)
--- NOTE | 2019-11-22 12:13 | Discharge Inst-Surgical ---
Discharge Inst-Surgical Depart Medication/Instructions New, Converted or Re-Newed RX: RX Given to Pt/Family Patient Instructions Follow up Appt: Make appointment for 1 week. [phone] Instructions: No lifting greater than 20 pounds. No strenuous activity. May shower in 24 hours, no tub bath or soaking. Use incentive spirometer at home as directed. No Smoking Skin/Wound Care: May remove bandages in am. You need to leave the Dermabond on incision it will fall off on it's own. Symptoms to Report: Appetite Changes, Extremity Discoloration, Numbness/Tingling, Swelling Increased, Bleeding Excessive, Eyesight Changes, Pain Increased, Urine Color Change, Constipation(Persistent), Fever over 101 degree F, Pain/Pressure in chest, Urinating Difficulty, Cough Up/Vomit Blood, Heart Beat Irreg/Pounding, Pain/Pressure in jaw, Cramps in feet or legs, Lightheadedness, Pain/Pressure in shoulder, Diarrhea(Persistent), Memory Changes Suddenly, Questions/Concerns, Weight gain consecutive days, Dizziness/Fainting, Nausea/Vomiting, Shortness of Breath, Weight gain over 2 pounds If questions or concerns contact your physician Or seek help at emergency department. Activity Activity as Tolerated: Yes Activity Instructions: Avoid Stress to Incision Driving Instructions: No Driving/Refer to Diet Discharge Diet: Avoid Fatty Foods, Low Fat/Low Cholesterol Diet After 24 Hours: Clear Liquid if Nauseous If Any Problems/Questions/Issu: Contact Your Physician, Go to Emergency Room Skin/Wound Care Infection Signs and Symptoms: Increased Redness, Foul Odor of Wound, Increased Drainage, Skin Itchy or Has a Rash, Increased Swelling, Temperature Above 101 F Wound Care Comment: heating pad to shoulder or neck tonight for pain Bathing Instructions: Shower Stitches/[place]/Dermabond Dis: Dermabond Ice Pack: Ice On and Off Site (as need for pain at incisions) ECHO CAMARA DO Nov 22, 2019 12:13
[2019-11-22] MEDS ORDERED: morphine INJ 10 MG/ML 1ML (SYR OR VIAL) ONE (12:44)
[2019-11-22] MEDS ORDERED: ONDANSETRON 4 MG/2 ML (SDV) Z0FRAN IVP PRN (12:45)
[2019-11-22] MEDS ORDERED: morphine INJ 10 MG/ML 1ML (SYR OR VIAL) IVP ONE (12:45)
[2019-11-22] MEDS ORDERED: HYDROmorphone 2 MG/ML VIAL (DILAUDID) IV ONE (12:45)
[2019-11-22] MEDS ORDERED: HYDROcodone/APAP 10 MG/325 MG (LORTAB) TAB PO ONE ×2 (13:42→14:00)
--- NOTE | 2019-11-22 13:57 | NUR ---
REPORT TAKEN FROM VIVIANE SWAN
--- NOTE | 2019-11-22 14:33 | Anesthesia-General Post-Op ---
General Patient Condition Mental Status/LOC: Same as Preop Cardiovascular: Satisfactory Nausea/Vomiting: Absent Respiratory: Satisfactory Pain: Controlled Complications: Absent Post Op Complications Complications None Follow Up Care/Instructions Patient Instructions None needed. Anesthesia/Patient Condition Patient Condition Patient is doing well, currently being discharged to home without complaints, stable vital signs, no apparent adverse anesthesia problems. JEFFERY CAMACHO DO Nov 22, 2019 14:33
== END 2019-11-22 14:30 | disposition home or self-care (01) ==
LOC: SDC 09:23
PROVIDERS: ATTEND Surgery
DX: K81.1 Chronic cholecystitis (principal); K82.8 Other specified diseases of gallbladder; K44.9 Diaphragmatic hernia without obstruction or gangrene; K20.9 Esophagitis, unspecified; I10 Essential (primary) hypertension; F32.9 Major depressive disorder, single episode, unspecified; F41.9 Anxiety disorder, unspecified; E11.9 Type 2 diabetes mellitus without complications; E78.5 Hyperlipidemia, unspecified; E78.00 Pure hypercholesterolemia, unspecified; K29.50 Unspecified chronic gastritis without bleeding; E66.9 Obesity, unspecified; Z68.42 Body mass index [BMI] 45.0-49.9, adult; Z79.899 Other long term (current) drug therapy; Z88.1 Allergy status to other antibiotic agents; Z88.8 Allergy status to other drugs, medicaments and biological substances; Z80.0 Family history of malignant neoplasm of digestive organs; Z11.2 Encounter for screening for other bacterial diseases; Z20.828 Contact with and (suspected) exposure to other viral communicable diseases
CPT/HCPCS: 47562; 87081; U0002; 87635

== ENCOUNTER 2020-04-28 09:12 | Observation (INO) | payer OTHER ==
[~2020-04-28] VITALS: Ht 182 cm; Wt 149.0 kg
[~2020-04-28 09:12] MED LIST changes: +ACHD5005 PO; +ACHYD1T PO; -HYDR-3812 PO
[2020-04-28] MEDS ORDERED: PANTOPRAZOLE 40 MG (PROTONIX) VIAL IV STA (09:27)
[2020-04-28] MEDS ORDERED: NS IV 1000 ML 1,000 ML IV STA ×2 (09:27→10:08)
--- NOTE | 2020-04-28 09:31 | ED GI ---
General Chief Complaint: Abdominal/GI Problems Stated Complaint: SYNCOPE Source of Information: Patient, EMS Exam Limitations: Other (pt decreased responsiveness) History of Present Illness Date Seen by Provider: Apr 28, 2020 Time Seen by Provider: 09:12 Initial Comments 45-year-old male presenting with EMS from urgent care after having a syncopal episode at urgent care. He states that he was having nausea vomiting and diarrhea that started last night. This continued this morning and he gone to urgent care to be evaluated. He reports having 6 episodes every 3-4 months. They have not been able to find a cause for this to be happening. He had his gallbladder removed in October and they thought that might resolve his episodes but he continues to have them. He denies any ill contacts. They had a negative flu and COVID swab reportedly from urgent care. She denies any pain in his abdomen her chest. He continues to be decreased responsiveness and more somnolent. He has received 8 mg of Zofran prior to coming to the emergency department. He states that he had 4 episodes of diarrhea just this morning. He has vomited several times this morning as well. He feels dizzy and lightheaded whenever he changes positions. He denies any cough or congestion and does not have any chest pain. Allergies and Home Medications Allergies Coded Allergies: neomycin (Unverified Allergy, Mild, HIVES, 11/08/19) pseudoephedrine (Unverified Allergy, Unknown, 03/14/14) triprolidine (Unverified Allergy, Unknown, 03/14/14) Home Medications Atorvastatin Calcium 10 Mg Tablet, 10 MG PO HS, (Reported) Cetirizine HCl 10 Mg Tablet, 10 MG PO DAILY, (Reported) Hydrocodone Bit/Acetaminophen 1 Ea Tab, 1 TAB PO Q6H Prescribed by: ECHO CAMARA on 11/22/19 1212 Ibuprofen 200 Mg Tablet, 800 MG PO Q6H PRN for PAIN-MODERATE (5-7), (Reported) Lisinopril 20 Mg Tablet, 20 MG PO DAILY, (Reported) Omeprazole 40 Mg Capsule.dr, 40 MG PO DAILY, (Reported) Sertraline HCl 50 Mg Tablet, 50 MG PO DAILY, (Reported) Patient Home Medication List Home Medication List Reviewed: Yes Review of Systems Review of Systems Constitutional: chills, dizziness (with changing positions); No fever; malaise EENTM: No Symptoms Reported Respiratory: No Symptoms Reported Cardiovascular: See HPI, Syncope (this morning at urgent care) Gastrointestinal: See HPI Genitourinary: Denies Frequency, Denies Pain Musculoskeletal: no symptoms reported Skin: no symptoms reported Psychiatric/Neurological: Denies Headache; Weakness (generalized) Past Afqdoto-Tyrfhi-Zfchuc Hx Past Med/Social Hx: Reviewed Nursing Past Med/Soc Hx Patient Social History 2nd Hand Smoke Exposure: No Recent Hopitalizations: No Immunizations Up To Date Date of Influenza Vaccine: Feb 05, 2019 Seasonal Allergies Seasonal Allergies: Yes Past Medical History Surgeries: Yes (Vericose vein ligation, FINGER, TAILBONE ) Orthopedic, Vascular Surgery Respiratory: No Currently Using CPAP: No Currently Using BIPAP: No Cardiac: Yes High Cholesterol, Hypertension Neurological: No Sexually Transmitted Disease: No HIV/AIDS: No Genitourinary: No Gastrointestinal: Yes Gastroesophageal Reflux, Chronic Diarrhea Musculoskeletal: No Endocrine: Yes (HX DIABETES) HEENT: No (GLASSES) Loss of Vision: Denies Hearing Impairment: Denies Cancer: No Psychosocial: Yes Anxiety, Depression Integumentary: No Blood Disorders: No Adverse Reaction/Blood Tranf: No (N/A) Physical Exam Vital Signs Vital Signs - First Documented 04/28/20 09:20 Temp 35.7 Pulse 74 Resp 18 B/P (MAP) 90/49 (63) Pulse Ox 95 O2 Delivery Room Air Capillary Refill : Height/Weight/BMI Height: 6'" Weight: 296lbs. oz. 134.874380wq; 44.98 BMI Method: General Appearance: obese, other (somnolent and but easily aroused) HEENT: PERRL/EOMI, other (slightly dry mucous membranes) Neck: supple, normal inspection Respiratory: chest non-tender, lungs clear, normal breath sounds, no respiratory distress, no accessory muscle use Cardiovascular: normal peripheral pulses, regular rate, rhythm Gastrointestinal: normal bowel sounds, soft, no pulsatile mass Extremities: normal range of motion, no calf tenderness, normal capillary refill Neurologic/Psychiatric: oriented x 3, other (somnolent but easily awakened) Skin: normal color, warm/dry Focused Exam Lactate Level 04/28/20 09:20: Lactic Acid Level 2.61*H 04/28/20 11:20: Lactic Acid Level 1.54 Lactic Acid Level Laboratory Tests Test 04/28/20 09:20 04/28/20 11:20 Lactic Acid Level 2.61 MMOL/L (0.50-2.00) *H 1.54 MMOL/L (0.50-2.00) Progress/Results/Core Measures Results/Orders Lab Results Laboratory Tests Test 04/28/20 09:20 04/28/20 10:35 04/28/20 11:20 Range/Units White Blood Count 14.7 H 4.3-11.0 10^3/uL Red Blood Count 6.21 H 4.35-5.85 10^6/uL Hemoglobin 17.7 13.3-17.7 G/DL Hematocrit 55 H 40-54 % Mean Corpuscular Volume 88 80-99 FL Mean Corpuscular Hemoglobin 29 25-34 PG Mean Corpuscular Hemoglobin Concent 32 32-36 G/DL Red Cell Distribution Width 13.3 10.0-14.5 % Platelet Count 299 130-400 10^3/uL Mean Platelet Volume 10.3 7.4-10.4 FL Immature Granulocyte % (Auto) 0 % Neutrophils (%) (Auto) 79 H 42-75 % Lymphocytes (%) (Auto) 12 12-44 % Monocytes (%) (Auto) 8 0-12 % Eosinophils (%) (Auto) 0 0-10 % Basophils (%) (Auto) 0 0-10 % Neutrophils # (Auto) 11.6 H 1.8-7.8 X 10^3 Lymphocytes # (Auto) 1.8 1.0-4.0 X 10^3 Monocytes # (Auto) 1.2 H 0.0-1.0 X 10^3 Eosinophils # (Auto) 0.1 0.0-0.3 10^3/uL Basophils # (Auto) 0.1 0.0-0.1 10^3/uL Immature Granulocyte # (Auto) 0.0 0.0-0.1 10^3/uL Neutrophils % (Manual) 63 % Lymphocytes % (Manual) 14 % Monocytes % (Manual) 8 % Eosinophils % (Manual) 1 % Basophils % (Manual) 0 % Band Neutrophils 14 % Blood Morphology Comment NORMAL Sodium Level 140 135-145 MMOL/L Potassium Level 4.4 3.6-5.0 MMOL/L Chloride Level 105 98-107 MMOL/L Carbon Dioxide Level 21 21-32 MMOL/L Anion Gap 14 5-14 MMOL/L Blood Urea Nitrogen 24 H 7-18 MG/DL Creatinine 1.43 H 0.60-1.30 MG/DL Estimat Glomerular Filtration Rate 53 BUN/Creatinine Ratio 17 Glucose Level 149 H 70-105 MG/DL Lactic Acid Level 2.61 *H 1.54 0.50-2.00 MMOL/L Calcium Level 9.6 8.5-10.1 MG/DL Corrected Calcium 8.5-10.1 MG/DL Magnesium Level 2.0 1.6-2.4 MG/DL Total Bilirubin 0.3 0.1-1.0 MG/DL Aspartate Amino Transf (AST/SGOT) 22 5-34 U/L Alanine Aminotransferase (ALT/SGPT) 45 0-55 U/L Alkaline Phosphatase 149 H 40-136 U/L Troponin I < 0.30 <0.30 NG/ML Pro-B-Type Natriuretic Peptide 16.2 <75.0 PG/ML Total Protein 8.3 H 6.4-8.2 GM/DL Albumin 4.7 H 3.2-4.5 GM/DL Lipase 402 H 8-78 U/L Urine Color YELLOW Urine Clarity CLEAR Urine pH 5.5 5-9 Urine Specific Fonda 1.010 L 1.016-1.022 Urine Protein NEGATIVE NEGATIVE Urine Glucose (UA) NEGATIVE NEGATIVE Urine Ketones NEGATIVE NEGATIVE Urine Nitrite NEGATIVE NEGATIVE Urine Bilirubin NEGATIVE NEGATIVE Urine Urobilinogen 0.2 < = 1.0 MG/DL Urine Leukocyte Esterase NEGATIVE NEGATIVE Urine RBC (Auto) NEGATIVE NEGATIVE Urine RBC NONE /HPF Urine WBC 2-5 /HPF Urine Squamous Epithelial Cells 0-2 /HPF Urine Crystals NONE /LPF Urine Bacteria NEGATIVE /HPF Urine Casts PRESENT /LPF Urine Hyaline Casts 5-10 H /LPF Urine Mucus SMALL H /LPF Urine Culture Indicated NO Urine Opiates Screen NEGATIVE NEGATIVE Urine Oxycodone Screen NEGATIVE NEGATIVE Urine Methadone Screen NEGATIVE NEGATIVE Urine Propoxyphene Screen NEGATIVE NEGATIVE Urine Barbiturates Screen NEGATIVE NEGATIVE Ur Tricyclic Antidepressants Screen NEGATIVE NEGATIVE Urine Phencyclidine Screen NEGATIVE NEGATIVE Urine Amphetamines Screen NEGATIVE NEGATIVE Urine Methamphetamines Screen NEGATIVE NEGATIVE Urine Benzodiazepines Screen NEGATIVE NEGATIVE Urine Cocaine Screen NEGATIVE NEGATIVE Urine Cannabinoids Screen NEGATIVE NEGATIVE My Orders Orders - DIANA LAFLEUR MD Comprehensive Metabolic Panel (04/28/20 09:24) Lipase (04/28/20 09:24) Ua Culture If Indicated (04/28/20 09:24) Ed Iv/Invasive Line Start (04/28/20 09:24) Cbc With Automated Diff (04/28/20 09:24) Ct Abdomen/Pelvis W (04/28/20 09:24) Lactic Acid Analyzer (04/28/20 09:24) Ct Head Wo (04/28/20 09:24) Troponin I Fs (04/28/20 09:24) Probnp Fs (04/28/20 09:24) Ekg Tracing (04/28/20 09:24) Monitor-Rhythm Ecg Trace Only (04/28/20 09:24) O2 (04/28/20 09:24) Magnesium (04/28/20 09:24) Drug Screen Stat (Urine) (04/28/20 09:24) Pantoprazole Injection (Protonix Injecti (04/28/20 09:27) Ns Iv 1000 Ml (Sodium Chloride 0.9%) (04/28/20 09:27) Manual Differential (04/28/20 09:20) Iohexol Injection (Omnipaque 350 Mg/Ml 1 (04/28/20 10:15) Received Contrast (Hold Metformin- Contr (04/28/20 10:15) Ns (Ivpb) (Sodium Chloride 0.9% Ivpb Bag (04/28/20 10:15) Sodium Chloride Flush (Catheter Flush Sy (04/28/20 10:15) Blood Culture (04/28/20 10:07) Ns Iv 1000 Ml (Sodium Chloride 0.9%) (04/28/20 10:08) Lactated Ringers (Lr 1000 Ml Iv Solution (04/28/20 14:00) Medications Given in ED Current Medications Medications Dose Ordered Sig/Fiorella Route Start Time Stop Time Status Last Admin Dose Admin Iohexol 100 ml ONCE ONCE IV 04/28/20 10:15 04/28/20 10:16 DC 04/28/20 10:37 100 ML Sodium Chloride 10 ml NEEDED PRN IV 04/28/20 10:15 04/28/20 14:14 DC 04/28/20 10:37 10 ML Sodium Chloride 100 ml ONCE ONCE IV 04/28/20 10:15 04/28/20 10:16 DC 04/28/20 10:37 80 ML Vital Signs/I&O 04/28/20 04/28/20 09:20 14:12 Temp 35.7 36.5 Pulse 74 85 Resp 18 16 B/P (MAP) 90/49 (63) 124/70 Pulse Ox 95 98 O2 Delivery Room Air Room Air Progress Progress Note #1: Progress Note check labs, lactic acid, scan abdomen/pelvis as well as his head. with syncopal episode will also check cardiac enzymes. Give IVF for hydration and to try and help with his pressures Progress Note #2: Time: 11:24 Progress Note labs show elevated WBC count with left shift and bandemia. Lactic acid slightly elevated at 2.6. chemistry does show some dehydration with elevated creatinine and he has an elevated lipase to go with pancreatitis. His troponin was [address] scans of his head and abdomen pelvis did not demonstrate any acute significant abnormality to account for his symptoms. There is no findings for pancreatitis off of the CT scan of his abdomen pelvis. He was having improved blood pressure and was more awake and alert as his fluids were infusing. Discussed with Dr. Mina who is on for [facility] as the patient follows with providers through the clinic. She accepted the patient for admission to continue fluids and hydration. Will allow some clear liquids since he was not having abdominal pain. We will monitor his pancreas via repeat Lipase. Monitor on telemetry for his syncope but this is likely related to vasovagal and dehydration since he has improved with IVF here in ED. Progress Note #3: Progress Note UA did not show infection. UDS negative. Repeat lactic acid was down to normal after hydration. Initial ECG Impression Date: Apr 28, 2020 Initial ECG Impression Time: 09:45 Initial ECG Rate: 69 Initial ECG Rhythm: Normal Sinus Initial ECG Comparisson: Unchanged Comment normal sinus rhythm with a heart rate of 69 bpm. FL interval [address] elevation. QT interval 360 ms with a QTc interval 395 ms. Appears similar to prior tracings. Diagnostic Imaging Diagonstic Imaging: CT Plain Films/CT/US/NM/MRI: abdomen, pelvis Comments [facility], [place] NAME: HILARIA GUSTAFSON V MED REC#: [id number] PT STATUS: REG ER : 1975 PHYSICIAN: DIANA LAFLEUR MD ADMIT DATE: 04/28/20/ER FS Draft Date of Exam:04/28/20 CT ABDOMEN/PELVIS W PROCEDURE: CT abdomen and pelvis with contrast. TECHNIQUE: Multiple contiguous axial images were obtained through the abdomen and pelvis after administration of intravenous contrast. Auto Exposure Controls were utilized during the CT exam to meet ALARA standards for radiation dose reduction. All CT scans use one or more of the following dose optimizing techniques: automated exposure control, MA and/or KvP adjustment based on patient size and exam type or iterative reconstruction. INDICATION: Nausea, vomiting, cholecystectomy in October. Compared with CT abdomen and pelvis 10/2019. FINDINGS: The gallbladder is surgically absent. No perihepatic fluid collection. No pathological dilatation of the bile ducts. Since the prior exam, there has been development of fatty supraumbilical ventral abdominal wall hernia comprised solely of mesenteric and omental fat. No herniation of viscus hernial orifices 2 cm in diameter and there is no inflammatory changes within the hernia sac. The air-containing appendix well visualized and normal. There are no findings of appendicitis. There is no hydroureteronephrosis. No solid or cystic renal mass. The abdominal aorta is normal in caliber. Spleen, adrenals and pancreas unremarkable. There is fluid within the lumen of the colon which may reflect a diarrheal state. The colonic wall is non-thickened. No pericolonic or perienteric edema. No ileus or bowel obstruction. Prostate, seminal vesicles and urinary bladder had an unremarkable appearance. There is no diverticulitis. IMPRESSION: 1. Supraumbilical fatty hernia, interval cholecystectomy without biliary dilatation or fluid collection. 2. Elevated fluid load throughout the lumen of the colon may reflect a diarrheal state without wall thickening or pericolonic edema. Dictated on workstation # [id number] Dict: 04/28/20 1045 Trans: 04/28/20 1054 [id number] Interpreted by: ABHAY GARCIA Electronically signed by: Diagonstic Imaging: CT Plain Films/CT/US/NM/MRI: head Comments [facility], [place] NAME: HILARIA GUSTAFSON Haydee [facility] REC#: [id number] PT STATUS: REG ER : 1975 PHYSICIAN: DIANA LAFLEUR MD ADMIT DATE: 04/28/20/ER FS Signed Date of Exam:04/28/20 CT HEAD WO PROCEDURE: CT head without contrast. TECHNIQUE: Multiple contiguous axial images were obtained through the brain without the use of intravenous contrast. Auto Exposure Controls were utilized during the CT exam to meet ALARA standards for radiation dose reduction. INDICATION: Syncope. FINDINGS: The ventricles and sulci are within normal limits. There is no hydrocephalus or cerebral edema. There is no midline shift or mass effect. There is no intracranial mass, hemorrhage, or extra-axial fluid collection. The visualized paranasal sinuses and mastoid air cells are clear. There are no regional areas of decreased attenuation appreciated to suggest an acute CVA. IMPRESSION: No acute intracranial abnormality. The current study was also evaluated with a Computer Aided Detection (CAD) system. 3-D Tomographic imaging was also performed. Dictated by: Dictated on workstation # [id number] Dict: 04/28/20 1048 Trans: 04/28/20 1057 [facility] [id number] Interpreted by: TRINA LABOY MD Electronically signed by: TRINA LABOY MD 04/28/20 1057 Departure Communication (Admissions) Time/Spoke to Admitting Phy: 11:24 d/w Dr. Mina for [facility] and will admit for n/v/d and elevated WBC count with left shift, elevated lipase and dehydration. He had negative Covid swab per urgent care. Cardiac enzymes and CT head negative for other sources of syncope and BP improved with hydration. He is more awake and interactive since getting fluids and improved BP. Impression Primary Impression: Nausea vomiting and diarrhea Additional Impressions: Vasovagal syncope Dehydration Pancreatitis Qualified Codes: K85.90 - Acute pancreatitis without necrosis or infection, unspecified Disposition: 30 STILL A PATIENT Condition: Stable Admissions Decision to Admit Reason: Admit from ER (General) Decision to Admit/Date: Apr 28, 2020 Time/Decision to Admit Time: 11:24 Departure-Patient Inst. Referrals: NO,LOCAL PHYSICIAN (PCP) Primary Care Physician MATY DAVILA APRN (Family) Primary Care Physician DIANA LAFLEUR MD Apr 28, 2020 09:31
[2020-04-28 09:48] LABS: HEMOGLOBIN 17.7 G/DL (13.3-17.7); MEAN CORPUSCULAR HEMOGLOBIN 29 PG (25-34); WHITE BLOOD COUNT 14.7 10^3/uL (4.3-11.0)
[2020-04-28 09:49] LABS: BASOPHILS # (AUTO) 0.1 10^3/uL (0.0-0.1); BASOPHILS % (AUTO) 0 % (0-10); EOSINOPHILS # (AUTO) 0.1 10^3/uL (0.0-0.3); EOSINOPHILS % (AUTO) 0 % (0-10); HEMATOCRIT 55 % (40-54); LYMPHOCYTES # (AUTO) 1.8 X 10^3 (1.0-4.0); LYMPHOCYTES % (AUTO) 12 % (12-44); MEAN CORPUSCULAR HGB CONC 32 G/DL (32-36); MEAN CORPUSCULAR VOLUME 88 FL (80-99); MEAN PLATELET VOLUME 10.3 FL (7.4-10.4); MONOCYTES # (AUTO) 1.2 X 10^3 (0.0-1.0); MONOCYTES % (AUTO) 8 % (0-12); NEUTROPHILS # (AUTO) 11.6 X 10^3 (1.8-7.8); NEUTROPHILS % (AUTO) 79 % (42-75); PLATELET COUNT 299 10^3/uL (130-400)
--- NOTE | 2020-04-28 10:03 | NUR ---
(Emily) called and stated that her has been having these "spells" for about 2 years now. The onset was labor day weekend two years ago. When these spells occur they last three days of clammy, feels like he is going to pass out, vomiting and diarrhea. One other time he has passed out, but this time it is the worse. Pt had gallbladder removed in October due too it functioning at 23% and bile was backing up and had bloating feeling. Pt was seen at [facility] and had labs done. His pancreatic enzymes were elevated and they wanted to admit him, but due to not having insurance they did not want to do that. They followed up and had repeat labs done and they were normal. They are unsure what is going on, but she is worried and hoping that she can get answers.
[2020-04-28] MEDS ORDERED: NS 100 ML (IVPB) BAG IV ONE (10:15)
[2020-04-28] MEDS ORDERED: IOHEXOL 350 MG/ML 100 ML (OMNIPAQUE 350) VIAL IV ONE (10:15)
[2020-04-28] MEDS ORDERED: HOLD METFORMIN - RECEIVED CONTRAST 20 ML VIAL IV SCH (10:15)
[2020-04-28] MEDS ORDERED: CATHETER FLUSH 10 ML SYR IV PRN (10:15)
[2020-04-28 10:17] LABS: NEUTROPHILS % (MANUAL) 63 %
[2020-04-28 10:18] LABS: BAND NEUTROPHILS 14 %; BASOPHILS % (MANUAL) 0 %; EOSINOPHILS % (MANUAL) 1 %; LYMPHOCYTES % (MANUAL) 14 %; MONOCYTES % (MANUAL) 8 %; RBC MORPH NORMAL
[2020-04-28 10:19] LABS: ALANINE AMINOTRANSFERASE 45 U/L (0-55); ALKALINE PHOSPHATASE 149 U/L (40-136); BILIRUBIN,TOTAL 0.3 MG/DL (0.1-1.0); BUN/CREATININE RATIO 17; CALCIUM 9.6 MG/DL (8.5-10.1); CARBON DIOXIDE 21 MMOL/L (21-32); CHLORIDE 105 MMOL/L (98-107); CREATININE SERUM 1.43 MG/DL (0.60-1.30); GFR ESTIMATED 53; GLUCOSE 149 MG/DL (70-105); POTASSIUM 4.4 MMOL/L (3.6-5.0); SODIUM 140 MMOL/L (135-145)
[2020-04-28 10:20] LABS: ALBUMIN 4.7 GM/DL (3.2-4.5); TOTAL PROTEIN 8.3 GM/DL (6.4-8.2)
[2020-04-28 10:21] LABS: LIPASE 402 U/L (8-78)
--- NOTE | 2020-04-28 10:53 | Diagnostic Imaging Report ---
PROCEDURE: CT head without contrast. TECHNIQUE: Multiple contiguous axial images were obtained through the brain without the use of intravenous contrast. Auto Exposure Controls were utilized during the CT exam to meet ALARA standards for radiation dose reduction. INDICATION: Syncope. FINDINGS: The ventricles and sulci are within normal limits. There is no hydrocephalus or cerebral edema. There is no midline shift or mass effect. There is no intracranial mass, hemorrhage, or extra-axial fluid collection. The visualized paranasal sinuses and mastoid air cells are clear. There are no regional areas of decreased attenuation appreciated to suggest an acute CVA. IMPRESSION: No acute intracranial abnormality. The current study was also evaluated with a Computer Aided Detection (CAD) system. 3-D Tomographic imaging was also performed. Dictated by: Dictated on workstation # [id number]
--- NOTE | 2020-04-28 10:54 | Diagnostic Imaging Report ---
PROCEDURE: CT abdomen and pelvis with contrast. TECHNIQUE: Multiple contiguous axial images were obtained through the abdomen and pelvis after administration of intravenous contrast. Auto Exposure Controls were utilized during the CT exam to meet ALARA standards for radiation dose reduction. All CT scans use one or more of the following dose optimizing techniques: automated exposure control, MA and/or KvP adjustment based on patient size and exam type or iterative reconstruction. INDICATION: Nausea, vomiting, cholecystectomy in October. Compared with CT abdomen and pelvis 10/2019. FINDINGS: The gallbladder is surgically absent. No perihepatic fluid collection. No pathological dilatation of the bile ducts. Since the prior exam, there has been development of fatty supraumbilical ventral abdominal wall hernia comprised solely of mesenteric and omental fat. No herniation of viscus hernial orifices 2 cm in diameter and there is no inflammatory changes within the hernia sac. The air-containing appendix well visualized and normal. There are no findings of appendicitis. There is no hydroureteronephrosis. No solid or cystic renal mass. The abdominal aorta is normal in caliber. Spleen, adrenals and pancreas unremarkable. There is fluid within the lumen of the colon which may reflect a diarrheal state. The colonic wall is non-thickened. No pericolonic or perienteric edema. No ileus or bowel obstruction. Prostate, seminal vesicles and urinary bladder had an unremarkable appearance. There is no diverticulitis. IMPRESSION: 1. Supraumbilical fatty hernia, interval cholecystectomy without biliary dilatation or fluid collection. 2. Elevated fluid load throughout the lumen of the colon may reflect a diarrheal state without wall thickening or pericolonic edema. Dictated by: Dictated on workstation # [id number]
--- NOTE | 2020-04-28 11:32 | NUR ---
WAS CALLED AND UPDATED. SHE STATED PATIENT USED TO TAKE METAFORMIN A LONG TIME AGO BUT WAS TAKEN OFF OF IT DUE TO DIARRHEA. SHE STATED THAT HE HAS BEEN CHECKING BLOOD SUGARS WITH GLUCOMETER AND CONTROLLING HIS BLOOD SUGARS WITH MONITORING HIS DIET.
[2020-04-28 12:24] LABS: CLARITY,URINE CLEAR; COLOR,URINE YELLOW; GLUCOSE, URINE (UA) NEGATIVE (NEGATIVE); PH,URINE 5.5 (5-9); PROTEIN,URINE NEGATIVE (NEGATIVE)
[2020-04-28 12:25] LABS: BACTERIA,URINE NEGATIVE /HPF; BILIRUBIN,URINE NEGATIVE (NEGATIVE); KETONES,URINE NEGATIVE (NEGATIVE); LEUKOCYTE ESTERASE ,URINE NEGATIVE (NEGATIVE); NITRITE,URINE NEGATIVE (NEGATIVE); SQUAMOUS EPITHELIAL CELL,UR 0-2 /HPF
[2020-04-28 12:28] LABS: AMPHETAMINE SCREEN, URINE NEGATIVE (NEGATIVE); BARBITURATE SCREEN URINE NEGATIVE (NEGATIVE); BENZODIAZEPINES SCREEN URINE NEGATIVE (NEGATIVE); CANNABINOID SCREEN, URINE NEGATIVE (NEGATIVE); COCAINE SCREEN URINE NEGATIVE (NEGATIVE); METHADONE STAT NEGATIVE (NEGATIVE); METHAMPHETAMINE SCREEN URINE S NEGATIVE (NEGATIVE); OPIATE SCREEN URINE NEGATIVE (NEGATIVE); OXYCODONE STAT NEGATIVE (NEGATIVE); PROPOXYPHENE STAT NEGATIVE (NEGATIVE); TRICYCLIC ANTIDEPRESSANTS SCRE NEGATIVE (NEGATIVE)
--- NOTE | 2020-04-28 13:10 | NUR ---
HILARIA GUSTAFSON V admitted to room 407-1, with an admitting diagnosis of nausea, vomiting, vasoagal syncope, on 04/28/20 from [facility] via stretcher, accompanied by staff.HILARIA GUSTAFSON V introduced to surroundings, call light, bed controls, phone, TV, temperature control, lights, meal times, smoking policy, visitor policy, side rail policy, bathrooms and showers. Patient Rights given to patient in the handbook. HILARIA GUSTAFSON V verbalizes understanding that [facility] is not responsible for the loss or damage to any personal effects or valuables that are kept in the patients posession during their hospitalization.
--- NOTE | 2020-04-28 14:27 | NUR ---
ATTEMPTED TO CALL REPORT, NO ANSWER.
[2020-04-28] MEDS ORDERED: ONDANSETRON 4 MG/2 ML (SDV) Z0FRAN ONE (16:07)
[2020-04-28] MEDS ORDERED: ONDANSETRON 4 MG/2 ML (SDV) Z0FRAN IV PRN (16:15)
[2020-04-28] MEDS: LACTATED RINGERS 1,000 ML IV SCH ×2 (16:24→16:46)
[2020-04-28 16:28] VITALS: BP 124/70
[2020-04-28 16:29] VITALS: BP 125/76
--- NOTE | 2020-04-28 17:18 | Consultation - Surgery ---
ARMAAN SCOTT MED STUDENT 04/28/20 1718: History of Present Illness History of Present Illness Patient Consulted On(christine/time) 04/28/20 17:13 Date Seen by Provider: Apr 28, 2020 Time Seen by Provider: 04:50 Reason for Visit: Syncope, N/V/D History of Present Illness Perfecto is a 45yo male presenting with passing out, nausea, vomiting, and diarrhea. He says that he attended a family [employer] dinner yesterday when he started feeling nauseated, started vomiting, having loose bm's, clamminess, and fainting. He experienced another episode of these symptoms this morning that prompted him to be seen in the ED. He says that he has experienced these episodes for the past 2 years, starting in Dec. These episodes would occur monthly and last about 3 days. In October of this year, he had his gallbladder removed by Dr. Camara, which caused these episodes to cease until yesterday. He is also having pain with tenderness to his RUQ, and a headache since yesterday. He denies chest pain, numbness/tingling, and dysuria. Allergies and Home Medications Allergies Coded Allergies: neomycin (Unverified Allergy, Mild, HIVES, 11/08/19) pseudoephedrine (Unverified Allergy, Unknown, 03/14/14) triprolidine (Unverified Allergy, Unknown, 03/14/14) Home Medications Atorvastatin Calcium 10 Mg Tablet, 10 MG PO HS, (Reported) Cetirizine HCl 10 Mg Tablet, 10 MG PO DAILY, (Reported) Hydrocodone Bit/Acetaminophen 1 Ea Tab, 1 TAB PO Q6H Prescribed by: ECHO CAMARA on 11/22/19 1212 Ibuprofen 200 Mg Tablet, 800 MG PO Q6H PRN for PAIN-MODERATE (5-7), (Reported) Lisinopril 20 Mg Tablet, 20 MG PO DAILY, (Reported) Omeprazole 40 Mg Capsule.dr, 40 MG PO DAILY, (Reported) Sertraline HCl 50 Mg Tablet, 50 MG PO DAILY, (Reported) Patient Home Medication List Home Medication List Reviewed: Yes Past Tzmqdvg-Oieflg-Eapfqy Hx Patient Social History Alcohol Use: Denies Use Recreational Drug Use: No Smoking Status: Never a Smoker 2nd Hand Smoke Exposure: No Recent Foreign Travel: No Contact w/Someone Who Travel: No Recent Infectious Disease Expo: No Recent Hopitalizations: No Immunizations Up To Date Date of Influenza Vaccine: Feb 05, 2019 Seasonal Allergies Seasonal Allergies: Yes Surgeries History of Surgeries: Yes (Vericose vein ligation, FINGER, TAILBONE ) Surgeries: Gallbladder (Cholecystectomy October 2019), Orthopedic (Boutiennierre deformity surgery) Respiratory History of Respiratory Disorde: No Cardiovascular History of Cardiac Disorders: Yes Cardiac Disorders: High Cholesterol, Hypertension Neurological History of Neurological Disord: No Reproductive System Sexually Transmitted Disease: No HIV/AIDS: No Genitourinary History of Genitourinary Disor: No Gastrointestinal History of Gastrointestinal Di: Yes Gastrointestinal Disorders: Abdominal Hernia, Gall Bladder Disease Musculoskeletal History of Musculoskeletal Dis: No Endocrine History of Endocrine Disorders: Yes (HX DIABETES) Endocrine Disorders: Diabetes, Non-Insulin dep HEENT History of HEENT Disorders: No (GLASSES) Loss of Vision: Denies Hearing Impairment: Denies Cancer History of Cancer: No Psychosocial History of Psychiatric Problem: Yes Behavioral Health Disorders: Anxiety, Depression Integumentary History of Skin or Integumenta: No Blood Transfusions History of Blood Disorders: No Adverse Reaction to a Blood Tr: No (N/A) Family Medical History Significant Family History: Hypertension, Other Conditions/Hx (HLD) Review of Systems-General EENTM: dental problems (most of top row of teeth are missing; pt states due to iron overload as a child causing them to fall out); No hearing loss, No vision loss Respiratory: No short of breath Cardiovascular: No chest pain, No palpitations; syncope Gastrointestinal: RUQ, abdominal pain, diarrhea; No hematemesis, No heartburn; nausea, vomiting Genitourinary: No decreased output, No dysuria, No frequency, No hematuria Musculoskeletal: No muscle pain, No muscle stiffness, No muscle cramps Skin: No lesions, No rash Psychiatric/Neurological: Anxiety, Depressed Physical Exam-General Problems Physical Exam Vital Signs Vital Signs - First Documented 04/28/20 09:20 Temp 35.7 Pulse 74 Resp 18 B/P (MAP) 90/49 (63) Pulse Ox 95 O2 Delivery Room Air Capillary Refill : Less Than 3 Seconds General Appearance: WD/WN, no apparent distress, obese HEENT: PERRL/EOMI Neck: non-tender, full range of motion, supple, normal inspection Respiratory: chest non-tender, lungs clear, normal breath sounds, no respiratory distress, no accessory muscle use Cardiovascular: normal peripheral pulses, regular rate, rhythm, no gallop, no JVD, no murmur Gastrointestinal: normal bowel sounds, soft, tenderness (RUQ), hernia (above umbilicus at old incision site) Rectal: deferred Back: normal inspection, no CVA tenderness, no vertebral tenderness Extremities: normal range of motion, non-tender, normal inspection, no pedal edema, normal capillary refill Neurologic/Psychiatric: no motor/sensory deficits, alert, normal mood/affect, oriented x 3 Skin: normal color, warm/dry Lymphatic: no adenopathy Data Review Labs Laboratory Tests 04/28/20 09:20: White Blood Count 14.7H, Red Blood Count 6.21H, Hemoglobin 17.7, Hematocrit 55H, Mean Corpuscular Volume 88, Mean Corpuscular Hemoglobin 29, Mean Corpuscular H emoglobin Concent 32, Red Cell Distribution Width 13.3, Platelet Count 299, Mean Platelet Volume 10.3, Immature Granulocyte % (Auto) 0, Neutrophils (%) (Auto) 79H, Lymphocytes (%) (Auto) 12, Monocytes (%) (Auto) 8, Eosinophils (%) (Auto) 0, Basophils (%) (Auto) 0, Neutrophils # (Auto) 11.6H, Lymphocytes # (Auto) 1.8, Monocytes # (Auto) 1.2H, Eosinophils # (Auto) 0.1, Basophils # (Auto) 0.1, Immature Granulocyte # (Auto) 0.0, Neutrophils % (Manual) 63, Lymphocytes % (Manual) 14, Monocytes % (Manual) 8, Eosinophils % (Manual) 1, Basophils % (Manual) 0, Band Neutrophils 14, Blood Morphology Comment NORMAL, Sodium Level 140, Potassium Level 4.4, Chloride Level 105, Carbon Dioxide Level 21, Anion Gap 14, Blood Urea Nitrogen 24H, Creatinine 1.43H, Estimat Glomerular Filtration Rate 53, BUN/Creatinine Ratio 17, Glucose Level 149H, Lactic Acid Level 2.61*H, Calcium Level 9.6, Corrected Calcium , Magnesium Level 2.0, Total Bilirubin 0.3, Aspartate Amino Transf (AST/SGOT) 22, Alanine Aminotransferase (ALT/SGPT) 45, Alkaline Phosphatase 149H, Troponin I < 0.30, Pro-B-Type Natriuretic Peptide 16.2, Total Protein 8.3H, Albumin 4.7H, Lipase 402H 04/28/20 10:35: Urine Color YELLOW, Urine Clarity CLEAR, Urine pH 5.5, Urine Specific Charlton 1.010L, Urine Protein NEGATIVE, Urine Glucose (UA) NEGATIVE, Urine Ketones NEGATIVE, Urine Nitrite NEGATIVE, Urine Bilirubin NEGATIVE, Urine Urobilinogen 0.2, Urine Leukocyte Esterase NEGATIVE, Urine RBC (Auto) NEGATIVE, Urine RBC NONE, Urine WBC 2-5, Urine Squamous Epithelial Cells 0-2, Urine Crystals NONE, Urine Bacteria NEGATIVE, Urine Casts PRESENT, Urine Hyaline Casts 5-10H, Urine Mucus SMALLH, Urine Culture Indicated NO, Urine Opiates Screen NEGATIVE, Urine Oxycodone Screen NEGATIVE, Urine Methadone Screen NEGATIVE, Urine Propoxyphene Screen NEGATIVE, Urine Barbiturates Screen NEGATIVE, Ur Tricyclic Antidepressants Screen NEGATIVE, Urine Phencyclidine Screen NEGATIVE, Urine Amphetamines Screen NEGATIVE, Urine Methamphetamines Screen NEGATIVE, Urine Benzodiazepines Screen NEGATIVE, Urine Cocaine Screen NEGATIVE, Urine Cannabinoids Screen NEGATIVE 04/28/20 11:20: Lactic Acid Level 1.54 Assessment/Plan Assessment/Plan Admission Diagonsis N/V/D, Syncope, Pancreatitis, Dehydration Assessment/Plan Acute pancreatitis - Lipase 402 Dehydration Supraumbilical hernia Vasovagal syncope Continue aggressive rehydration with IV fluids, PO liquids as tolerated, monitor VS/labs CT abd/pelvis showed supraumbilical hernia without evidence of bowel involvement No surgical indications at this time, will continue to monitor; hernia repair after pancreatitis resolves LEIGHANN ORTEGA DO 04/28/20 193: History of Present Illness History of Present Illness History of Present Illness Max requested by Dr. Mina for nausea vomiting diarrhea. Patient is a 45-year-old male who states he attended a [employer] dinner yesterday when he started feeling slightly ill. He started feeling a little bit nauseated. He took a Zofran which helped a little bit but then continued to worsen. Started having loose bowel movements. He is having clamminess and felt like is going to pass out. Patient states that he had to go down to the floor so he did not fall. Patient states he is slowly resolved and then when he is at work he began having more of his symptoms which he had to go to the urgent care to be evaluated. Patient states he has some pain in the epigastric right upper quadrant area. Food may seem to get things worse. He has had associated headache. He states he has had some nausea and vomiting as well. Nothing seems to make things better. He is tolerating clear liquids right now. Patient had CT of the head which showed no intracranial abnormality. Patient CT scan abdomen pelvis demonstrating a incisional hernia fat-containing and fluid within the colon more consistent with diarrheal state. Allergies and Home Medications Allergies Coded Allergies: neomycin (Unverified Allergy, Mild, HIVES, 11/08/19) pseudoephedrine (Unverified Allergy, Unknown, 03/14/14) triprolidine (Unverified Allergy, Unknown, 03/14/14) Home Medications Atorvastatin Calcium 10 Mg Tablet, 10 MG PO HS, (Reported) Cetirizine HCl 10 Mg Tablet, 10 MG PO DAILY, (Reported) Hydrocodone Bit/Acetaminophen 1 Ea Tab, 1 TAB PO Q6H Prescribed by: ECHO CAMARA on 11/22/19 1212 Ibuprofen 200 Mg Tablet, 800 MG PO Q6H PRN for PAIN-MODERATE (5-7), (Reported) Lisinopril 20 Mg Tablet, 20 MG PO DAILY, (Reported) Omeprazole 40 Mg Capsule.dr, 40 MG PO DAILY, (Reported) Sertraline HCl 50 Mg Tablet, 50 MG PO DAILY, (Reported) Patient Home Medication List Home Medication List Reviewed: Yes Past Bqyzxpr-Aawnzc-Lhcicu Hx Reviewed Nursing Assessment Reviewed/Agree w Nursing PMH: Yes Family Medical History Significant Family History: Hypertension, Other Conditions/Hx (HLD) Review of Systems-General Constitutional: No chills, No diaphoresis EENTM: dental problems (most of top row of teeth are missing; pt states due to iron overload as a child causing them to fall out); No hearing loss, No vision loss Respiratory: No short of breath Cardiovascular: No chest pain, No palpitations; syncope Gastrointestinal: RUQ, diarrhea; No hematemesis, No heartburn; nausea, vomiting Genitourinary: No decreased output, No dysuria, No frequency, No hematuria Musculoskeletal: No muscle pain, No muscle stiffness, No muscle cramps Skin: No lesions, No rash Psychiatric/Neurological: Denies Anxiety, Denies Depressed All Other Systems Reviewed Negative Unless Noted: Yes (Negative excepted noted.) Physical Exam-General Problems Physical Exam General Appearance: no apparent distress, obese HEENT: PERRL/EOMI, normal ENT inspection Neck: non-tender, supple Respiratory: chest non-tender, no respiratory distress, no accessory muscle use Cardiovascular: regular rate, rhythm, no JVD Gastrointestinal: soft, tenderness (RUQ, minimal), hernia (Incisional above umbilicus) Rectal: deferred Back: normal inspection, no CVA tenderness, no vertebral tenderness Extremities: normal range of motion, non-tender, normal inspection, no pedal edema Neurologic/Psychiatric: no motor/sensory deficits, alert, normal mood/affect, oriented x 3 Skin: normal color, warm/dry Lymphatic: no adenopathy Assessment/Plan Assessment/Plan Assessment/Plan Acute pancreatitis - Lipase 402 Dehydration nausea vomiting Incisional hernia Vasovagal syncope IV fluids, clear liquids pain control see how symptoms do with conservative measures no surgical intervention at this time Supervisory-Addendum Brief Verification & Attestation Participated in pt care: history, MDM, physical Personally performed: exam, history, MDM, supervision of care Care discussed with: Medical Student Procedures: n/a Results interpretation: Verified all documentation Verification and Attestation of Medical Student E/M Service A medical student performed and documented this service in my presence. I reviewed and verified all information documented by the medical student and made modifications to such information, when appropriate. I personally performed the physical exam and medical decision making. Leighann Ortega, Apr 28, 2020,19:42 ARMAAN SCOTT MED STUDENT Apr 28, 2020 17:18 LEIGHANN ORTEGA DO Apr 28, 2020 19:39
[2020-04-28] MEDS: ENOXAPARIN 40 MG/0.4 ML (LOVENOX) SYR SC SCH (17:38)
[2020-04-28] MEDS ORDERED: FLU QUADRIvalent (3YOA+) 60 mcg/0.5 ml 2020-21 (AFLURIA) IM ONE (18:00)
[2020-04-28 19:51] VITALS: BP 119/67
--- NOTE | 2020-04-28 20:56 | History & Physical-Hospitalist ---
History of Present Illness HPI/Chief Complaint CC: Severe N/V/D and pancreatitis with severe hypovolemia HPI: This is a 45yoWM clinic pt of [facility] who reported nausea, vomiting, and diarrhea every three months but worsened today. He went to Urgent Care, had a syncopal episode, had significant hypotension with systolic of 80s with elevated lactic acid due to hypovalemia and acute kidney injury with creatinine of 1.4. White count is 14,000, lipase is 400, CT of the head was normal, Covid and flu were negative. He will need surgery consultation by Dr. Santillan whom I have notified. Source: patient Exam Limitations: no limitations Date Seen 04/28/20 Time Seen by a Provider: 18:15 Attending Physician Asuncion Landaverde Emily K Aprn Referring Physician Date of Admission Apr 28, 2020 at 15:20 Home Medications & Allergies Home Medications Reviewed patient Home Medication Reconciliation performed by pharmacy medication reconciliations facility maintenance technician and/or nursing. Patients Allergies have been reviewed. Allergies Allergies Coded Allergies neomycin (Unverified Allergy, Mild, HIVES, 11/08/19) pseudoephedrine (Unverified Allergy, Unknown, 03/14/14) triprolidine (Unverified Allergy, Unknown, 03/14/14) Past Hdfvdis-Tyaxmt-Xjmcih Hx Past Med/Social Hx: Reviewed Nursing Past Med/Soc Hx, Reviewed and Corrections made Patient Social History Marrital Status: (18 years) Employed/Student: employed ([employer] 9 yrs) Alcohol Use: Denies Use Recreational Drug Use: No Smoking Status: Never a Smoker 2nd Hand Smoke Exposure: No Physical Abuse Screen: No Sexual Abuse: No Recent Foreign Travel: No Contact w/other who traveled: No Recent Hopitalizations: No Recent Infectious Disease Expo: No Immunizations Up To Date Date of Influenza Vaccine: Feb 05, 2019 Seasonal Allergies Seasonal Allergies: Yes Past Medical History Surgeries: Gallbladder (Cholecystectomy October 2019), Orthopedic (Boutiennierre deformity surgery) Currently Using CPAP: No Currently Using BIPAP: No Cardiac: High Cholesterol, Hypertension Sexually Transmitted Disease: No HIV/AIDS: No Gastrointestinal: Abdominal Hernia, Gall Bladder Disease Endocrine: Diabetes, Non-Insulin dep Loss of Vision: Denies Hearing Impairment: Denies Psychosocial: Anxiety, Depression History of Blood Disorders: No Adverse Reaction to Blood Springer: No (N/A) Family History Hypertension, Other Conditions/Hx (HLD) Review of Systems Constitutional: see HPI, malaise, weakness Gastrointestinal: diarrhea, nausea, vomiting Genitourinary: decreased output Physical Exam Physical Exam Vital Signs Vital Signs - First Documented 04/28/20 09:20 Temp 35.7 Pulse 74 Resp 18 B/P (MAP) 90/49 (63) Pulse Ox 95 O2 Delivery Room Air Capillary Refill : Less Than 3 Seconds Height, Weight, BMI Height: 6'" Weight: 296lbs. oz. 134.877370fs; 44.98 BMI Method: General Appearance: No Apparent Distress, Chronically ill Eyes: Right Eye Normal Inspection, Right Eye PERRL HEENT: PERRL/EOMI, Normal ENT Inspection, Pharynx Normal, Moist Mucous Membranes Neck: Full Range of Motion, Normal Inspection, Non Tender Respiratory: Chest Non Tender, Lungs Clear, Normal Breath Sounds, No Accessory Muscle Use, No Respiratory Distress Cardiovascular: Regular Rate, Rhythm, No Edema, No Gallop, No JVD, No Murmur, Normal Peripheral Pulses Gastrointestinal: Normal Bowel Sounds, No Organomegaly, No Pulsatile Mass, Non Tender, Soft Back: Normal Inspection, No CVA Tenderness, No Vertebral Tenderness Extremity: Normal Capillary Refill, Normal Inspection, Normal Range of Motion, Non Tender, No Calf Tenderness, No Pedal Edema Neurologic/Psychiatric: Alert, Oriented x3, No Motor/Sensory Deficits, Normal Mood/Affect Skin: Normal Color, Warm/Dry Lymphatic: No Adenopathy Results Results/Procedures Labs Laboratory Tests 04/28/20 09:20 Patient resulted labs reviewed. Assessment/Plan Admission Diagnosis Assessment: Severe N/V/D Severe hypovolemia Q 3 months of N/V/D DM HTN HLP Obesity Presumed MART Plan: Dr Santillan CLD Pain control IVF Admission Status: Inpatient Order (span 2 midnights) Reason for Inpatient Admission: pancreatitis Diagnosis/Problems Diagnosis/Problems (1) Pancreatitis Status: Acute Qualifiers: Chronicity: acute Pancreatitis type: unspecified pancreatitis type Acute pancreatitis complication: unspecified Qualified Codes: K85.90 - Acute pancreatitis without necrosis or infection, unspecified (2) Nausea vomiting and diarrhea Status: Acute (3) Vasovagal syncope Status: Acute (4) Dehydration Status: Acute Clinical Quality Measures DVT/VTE Risk/Contraindication: Risk Factor Score Per Nursin RFS Level Per Nursing on Admit: 2=Moderate LANDAVERDE,ASUNCION DO Apr 28, 2020 20:56
[2020-04-28] MEDS ORDERED: ACETAMINOPHEN 500 MG TAB (TYLENOL) PO PRN (21:30)
[2020-04-28] MEDS ORDERED: HYDROcodone/APAP 5 MG/325 MG (LORTAB) TAB PO PRN (21:30)
[2020-04-28] MEDS ORDERED: MELATONIN 3 MG TABLET PO PRN (21:30)
[2020-04-28] MEDS ORDERED: ALPRAZolam 0.25 MG (XANAX) TAB PO PRN (21:30)
[2020-04-28] MEDS ORDERED: CALCIUM CARBONATE 500 MG (TUMS) TAB.CHEW PO PRN (21:30)
[2020-04-28] MEDS ORDERED: PANTOPRAZOLE 40 MG (PROTONIX) TAB PO ONE (21:30)
[2020-04-28] MEDS ORDERED: LOPERAMIDE 2 MG (IMODIUM) TABLET PO PRN (21:30)
[2020-04-28] MEDS ORDERED: morphine INJ 4 MG/ML 1 ML (VIAL/SYRINGE) IVP PRN (22:15)
[2020-04-29] VITALS: BP 104/55
[2020-04-29] MEDS: LACTATED RINGERS 1,000 ML IV SCH ×4 (01:06→09:48)
[2020-04-29 03:56] VITALS: BP 127/73
[2020-04-29] MEDS: ENOXAPARIN 40 MG/0.4 ML (LOVENOX) SYR SC SCH (04:35)
--- NOTE | 2020-04-29 05:49 | Progress Note - Hospitalist ---
Subjective HPI/CC On Admission Date Seen by Provider: Apr 29, 2020 Time Seen by Provider: 09:30 CC: Severe N/V/D and pancreatitis with severe hypovolemia HPI: This is a 45yoWM clinic pt of [facility] who reported nausea, vomiting, and diarrhea every three months but worsened today. He went to Urgent Care, had a syncopal episode, had significant hypotension with systolic of 80s with elevated lactic acid due to hypovalemia and acute kidney injury with creatinine of 1.4. White count is 14,000, lipase is 400, CT of the head was normal, Covid and flu were negative. He will need surgery consultation by Dr. Santillan whom I have no tified. Subjective/Events-last exam Pt doing a lot better Had nausea and vomiting and diarrhea last night WBC now normal Lipase is now normal from [address] 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 Review of Systems General: Fatigue, Malaise Focused Exam Lactate Level 04/28/20 09:20: Lactic Acid Level 2.61*H 04/28/20 11:20: Lactic Acid Level 1.54 Objective Exam Vital Signs Vital Signs Date Time Temp Pulse Resp B/P (MAP) Pulse Ox O2 Delivery O2 Flow Rate FiO2 04/29/20 17:47 36.6 71 20 136/75 98 Room Air Capillary Refill : Less Than 3 Seconds General Appearance: No Apparent Distress, WD/WN, Chronically ill Respiratory: Lungs Clear Cardiovascular: Regular Rate, Rhythm Neurologic/Psychiatric: Alert, Oriented x3, No Motor/Sensory Deficits, Normal Mood/Affect Results/Procedures Lab Laboratory Tests 04/29/20 05:32 Patient resulted labs reviewed. Assessment/Plan Assessment and Plan Assess & Plan/Chief Complaint Assessment: Severe N/V/D Severe hypovolemia Q 3 months of N/V/D DM HTN HLP Obesity Presumed MART Plan: Dr Santillan CLD Pain control IVF DC home if ok with Dr Santillan Diagnosis/Problems Diagnosis/Problems (1) Pancreatitis Status: Acute Qualifiers: Chronicity: acute Pancreatitis type: unspecified pancreatitis type Acute pancreatitis complication: unspecified Qualified Codes: K85.90 - Acute pancreatitis without necrosis or infection, unspecified (2) Nausea vomiting and diarrhea Status: Acute (3) Vasovagal syncope Status: Acute (4) Dehydration Status: Acute Clinical Quality Measures DVT/VTE Risk/Contraindication: Risk Factor Score Per Nursin RFS Level Per Nursing on Admit: 2=Moderate LUCA LANDAVERDE DO Apr 29, 2020 05:49
[2020-04-29 06:09] LABS: BASOPHILS % (AUTO) 0 % (0-10); EOSINOPHILS # (AUTO) 0.2 10^3/uL (0.0-0.3); EOSINOPHILS % (AUTO) 3 % (0-10); HEMATOCRIT 43 % (40-54); HEMOGLOBIN 13.7 g/dL (13.3-17.7); LYMPHOCYTES % (AUTO) 33 % (12-44); MEAN CORPUSCULAR HEMOGLOBIN 28 pg (25-34); MEAN CORPUSCULAR HGB CONC 32 g/dL (32-36); MEAN CORPUSCULAR VOLUME 90 fL (80-99); MEAN PLATELET VOLUME 10.7 fL (9.0-12.2); MONOCYTES # (AUTO) 0.6 10^3/uL (0.0-1.0); MONOCYTES % (AUTO) 11 % (0-12); NEUTROPHILS # (AUTO) 3.2 10^3/uL (1.8-7.8); NEUTROPHILS % (AUTO) 53 % (42-75); PLATELET COUNT 218 10^3/uL (130-400); WHITE BLOOD COUNT 6.1 10^3/uL (4.3-11.0)
[2020-04-29 06:33] LABS: ALANINE AMINOTRANSFERASE 28 U/L (0-55); ALBUMIN 3.5 GM/DL (3.2-4.5); ALKALINE PHOSPHATASE 94 U/L (40-136); BILIRUBIN,TOTAL 0.6 MG/DL (0.1-1.0); BUN/CREATININE RATIO 24; CALCIUM 8.3 MG/DL (8.5-10.1); CARBON DIOXIDE 24 MMOL/L (21-32); CHLORIDE 107 MMOL/L (98-107); CREATININE SERUM 0.87 MG/DL (0.60-1.30); GFR ESTIMATED > 60; GLUCOSE 94 MG/DL (70-105); LIPASE 80 U/L (8-78); POTASSIUM 3.9 MMOL/L (3.6-5.0); SODIUM 138 MMOL/L (135-145); TOTAL PROTEIN 6.4 GM/DL (6.4-8.2)
[2020-04-29] MEDS ORDERED: PANTOPRAZOLE 40 MG (PROTONIX) TAB PO SCH (07:00)
--- NOTE | 2020-04-29 07:26 | Progress Note - Surgery ---
SONIAARMAAN MED STUDENT 04/29/20 0726: Subjective Date Seen by a Provider: Apr 29, 2020 Time Seen by a Provider: 06:35 Subjective/Events-last exam Pt seen and examined. He was resting in bed, NAD. He says that his RUQ pain is completely gone now. He had an episode of loose stools last night with nausea and vomiting, but is feeling better this morning. Review of Systems General: No Chills HEENT: No Head Aches Pulmonary: No Dyspnea Cardiovascular: No: Chest Pain, Palpitations, Lt Headedness Gastrointestinal: Nausea, Vomiting, Diarrhea; No: Abdominal Pain Genitourinary: No Dysuria Neurological: No: Numbness Focused Exam Lactate Level 04/28/20 09:20: Lactic Acid Level 2.61*H 04/28/20 11:20: Lactic Acid Level 1.54 Objective Exam Vital Signs Date Time Temp Pulse Resp B/P (MAP) Pulse Ox O2 Delivery O2 Flow Rate FiO2 04/29/20 03:56 36.8 84 16 127/73 (91) 96 Room Air 04/29/20 01:00 103 04/29/20 00:00 36.3 97 17 104/55 (71) 93 Room Air 04/28/20 21:50 100 04/28/20 20:15 Room Air 04/28/20 19:51 36.6 91 18 119/67 (84) 94 Room Air 04/28/20 16:29 36.2 107 17 125/76 (92) 91 Room Air 04/28/20 16:28 36.5 85 16 124/70 98 Room Air 04/28/20 16:20 Room Air 04/28/20 14:12 36.5 85 16 124/70 98 Room Air 04/28/20 09:20 35.7 74 18 90/49 (63) 95 Room Air I & O 04/29/20 07:00 Intake Total 1100 ml Balance 1100 ml Capillary Refill : Less Than 3 Seconds General Appearance: No Apparent Distress, WD/WN, Obese HEENT: PERRL/EOMI, Moist Mucous Membranes Neck: Full Range of Motion, Normal Inspection, Non Tender Respiratory: Chest Non Tender, Lungs Clear, Normal Breath Sounds, No Accessory Muscle Use, No Respiratory Distress Cardiovascular: Regular Rate, Rhythm, No Edema, No Gallop, No JVD, No Murmur, Normal Peripheral Pulses Gastrointestinal: non tender, soft, hernia (Incisional above umbilicus) Extremity: Normal Capillary Refill, Normal Inspection, Normal Range of Motion, Non Tender, No Pedal Edema Neurologic/Psychiatric: Alert, Oriented x3, No Motor/Sensory Deficits, Normal Mood/Affect Skin: Normal Color, Warm/Dry Lymphatic: No Adenopathy Results Lab Laboratory Tests 04/28/20 09:20: White Blood Count 14.7H, Red Blood Count 6.21H, Hemoglobin 17.7, Hematocrit 55H, Mean Corpuscular Volume 88, Mean Corpuscular Hemoglobin 29, Mean Corpuscular Hemoglobin Concent 32, Red Cell Distribution Width 13.3, Platelet Count 299, Mean Platelet Volume 10.3, Immature Granulocyte % (Auto) 0, Neutrophils (%) (Auto) 79H, Lymphocytes (%) (Auto) 12, Monocytes (%) (Auto) 8, Eosinophils (%) (Auto) 0, Basophils (%) (Auto) 0, Neutrophils # (Auto) 11.6H, Lymphocytes # (Auto) 1.8, Monocytes # (Auto) 1.2H, Eosinophils # (Auto) 0.1, Basophils # (Auto) 0.1, Immature Granulocyte # (Auto) 0.0, Neutrophils % (Manual) 63, Lymphocytes % (Manual) 14, Monocytes % (Manual) 8, Eosinophils % (Manual) 1, Basophils % (Manual) 0, Band Neutrophils 14, Blood Morphology Comment NORMAL, Sodium Level 140, Potassium Level 4.4, Chloride Level 105, Carbon Dioxide Level 21, Anion Gap 14, Blood Urea Nitrogen 24H, Creatinine 1.43H, Estimat Glomerular Filtration Rate 53, BUN/Creatinine Ratio 17, Glucose Level 149H, Lactic Acid Level 2.61*H, Calcium Level 9.6, Corrected Calcium , Magnesium Level 2.0, Total Bilirubin 0.3, Aspartate Amino Transf (AST/SGOT) 22, Alanine Aminotransferase (ALT/SGPT) 45, Alkaline Phosphatase 149H, Troponin I < 0.30, Pro-B-Type Natriuretic Peptide 16.2, Total Protein 8.3H, Albumin 4.7H, Lipase 402H 04/28/20 10:35: Urine Color YELLOW, Urine Clarity CLEAR, Urine pH 5.5, Urine Specific Hammon 1.010L, Urine Protein NEGATIVE, Urine Glucose (UA) NEGATIVE, Urine Ketones NEGATIVE, Urine Nitrite NEGATIVE, Urine Bilirubin NEGATIVE, Urine Urobilinogen 0.2, Urine Leukocyte Esterase NEGATIVE, Urine RBC (Auto) NEGATIVE, Urine RBC NON E, Urine WBC 2-5, Urine Squamous Epithelial Cells 0-2, Urine Crystals NONE, Urine Bacteria NEGATIVE, Urine Casts PRESENT, Urine Hyaline Casts 5-10H, Urine Mucus SMALLH, Urine Culture Indicated NO, Urine Opiates Screen NEGATIVE, Urine Oxycodone Screen NEGATIVE, Urine Methadone Screen NEGATIVE, Urine Propoxyphene Screen NEGATIVE, Urine Barbiturates Screen NEGATIVE, Ur Tricyclic Antidepressants Screen NEGATIVE, Urine Phencyclidine Screen NEGATIVE, Urine Amphetamines Screen NEGATIVE, Urine Methamphetamines Screen NEGATIVE, Urine Benzodiazepines Screen NEGATIVE, Urine Cocaine Screen NEGATIVE, Urine Cannabinoids Screen NEGATIVE 04/28/20 11:20: Lactic Acid Level 1.54 04/29/20 05:32: White Blood Count 6.1, Red Blood Count 4.82, Hemoglobin 13.7, Hematocrit 43, Mean Corpuscular Volume 90, Mean Corpuscular Hemoglobin 28, Mean Corpuscular Hemoglobin Concent 32, Red Cell Distribution Width 13.4, Platelet Count 218, Mean Platelet Volume 10.7, Immature Granulocyte % (Auto) 0, Neutrophils (%) (Auto) 53, Lymphocytes (%) (Auto) 33, Monocytes (%) (Auto) 11, Eosinophils (%) (Auto) 3, Basophils (%) (Auto) 0, Neutrophils # (Auto) 3.2, Lymphocytes # (Auto) 2.0, Monocytes # (Auto) 0.6, Eosinophils # (Auto) 0.2, Basophils # (Auto) 0.0, Immature Granulocyte # (Auto) 0.0, Sodium Level 138, Potassium Level 3.9, Chloride Level 107, Carbon Dioxide Level 24, Anion Gap 7, Blood Urea Nitrogen 21H, Creatinine 0.87, Estimat Glomerular Filtration Rate > 60, BUN/Creatinine Ratio 24, Glucose Level 94, Calcium Level 8.3L, Corrected Calcium 8.7, Total Bilirubin 0.6, Aspartate Amino Transf (AST/SGOT) 14, Alanine Aminotransferase (ALT/SGPT) 28, Alkaline Phosphatase 94, Total Protein 6.4, Albumin 3.5, Lipase 80H Assessment/Plan Assessment/Plan Assessment/Plan Acute pancreatitis - improving, Lipase 80 (402 yesterday) Dehydration nausea vomiting Incisional hernia Vasovagal syncope Abd pain improving, N/V/D last night but improving overall Continue IV fluids, clear liquids, pain control Continue with conservative measures No surgical intervention at this time Clinical Quality Measures DVT/VTE Risk/Contraindication: Risk Factor Score Per Nursin RFS Level Per Nursing on Admit: 2=Moderate LEIGHANN SANTILLAN DO 04/29/20 1631: Subjective Subjective/Events-last exam Patient having no pain. Not having any nausea or vomiting. No diarrhea. Tolerating diet. No new complaints. Denies n/v fever sweats chills shortness of breath or chest pain. WBC normal. Objective Exam General Appearance: No Apparent Distress, WD/WN, Obese HEENT: PERRL/EOMI, Moist Mucous Membranes Neck: Normal Inspection, Non Tender Respiratory: Chest Non Tender, No Accessory Muscle Use, No Respiratory Distress Cardiovascular: Regular Rate, Rhythm, No JVD Gastrointestinal: non tender, soft, hernia (Incisional above umbilicus) Extremity: Normal Capillary Refill, Normal Inspection, Normal Range of Motion, Non Tender Neurologic/Psychiatric: Alert, Oriented x3, No Motor/Sensory Deficits, Normal Mood/Affect Skin: Normal Color, Warm/Dry Lymphatic: No Adenopathy Assessment/Plan Assessment/Plan Assessment/Plan Acute pancreatitis - improving, Lipase 80 (402 yesterday) Dehydration nausea vomiting Incisional hernia Vasovagal syncope Abd pain improved, n/v resolved Feeling better and tolerating diet. Slowly advance diet No surgical intervention at this time If feeling well, could dc home. Supervisory-Addendum Brief Verification & Attestation Participated in pt care: history, MDM, physical Personally performed: exam, history, MDM, supervision of care Care discussed with: Medical Student Procedures: n/a Results interpretation: Verified all documentation Verification and Attestation of Medical Student E/M Service A medical student performed and documented this service in my presence. I reviewed and verified all information documented by the medical student and made modifications to such information, when appropriate. I personally performed the physical exam and medical decision making. Leighann Santillan, Apr 29, 2020,16:31 ARMAAN SCOTT MED STUDENT Apr 29, 2020 07:26 LEIGHANN SANTILLAN DO Apr 29, 2020 16:31
[2020-04-29 08:00] VITALS: BP 105/50
[2020-04-29] MEDS ORDERED: CYCL10TA9 PO (11:40)
[2020-04-29] MEDS ORDERED: DICL75TA2 PO (11:40)
[2020-04-29] MEDS ORDERED: LIDO700A45 TP (11:40)
--- NOTE | 2020-04-29 11:41 | NUR ---
SPOKE WITH THE PT, CALLED [facility] AND [facility] IN [facility] AND [facility] AND ALSO CALLED [facility] IN [place] TO COMPLETE THE MED REC WHEN I FIRST SPOKE WITH THE PT ABOUT HIS HOME MEDICATIONS HE LISTED LISINOPRIL, ATORVASTATIN, OMEPRAZOLE AND ZOLOFT. WHEN I ASKED IF THESE WERE CURRENT MEDS OR IF HE HAD RAN OUT; HE SAID THE BOTTLES WERE CURRENT AT HOME. I STARTED WITH [facility] IN [place] AND WAS GIVEN THE FOLLOWING INFORMATION: 01-01-2020 LISINOPRIL 20MG #30/30DS- THE PAST DUE FILL DATE IS ON THE MED REC 04-01-2020 OMEPRAZOLE 40MG #30/30DS 04-16-2020 CYCLOBENZAPRINE 10MG #30 04-16-2020 DICLOFENAC 75MG #28 04-17-2020 LIDODERM 5% PATCH #30 THE PHARMACY HAD NO RECORD OF ATORVASTATIN OR SERTRALINE. I WAS TRANSFERRED TO THE NURSE AT [facility] TO FIND OUT ABOUT REPOSITORY MEDICATIONS BUT WAS TOLD THEY DID NOT SEE ANYTHING THEY HAD GIVEN HIM, BUT THEY SUGGESTED I CALLED [facility] SINCE THEY HAD SENT PRESCRIPTIONS THERE FOR HIM IN THE PAST. [facility] DID NOT HAVE ANYTHING THRU THE REPOSITORY OR ANYTHING FOR THE PHARMACY I WENT AND SPOKE WITH THE PT AGAIN AND WAS TOLD HE GOT THE SERTRALINE FROM THE REPOSITORY IN [place]. PT CANT REMEMBER THE LAST TIME HE FILLED ATORVASTATIN AND WHEN I LET HIM KNOW THE LAST FILL DATE ON LISINOPRIL PT SAID THAT WAS PROBABLY CORRECT I CALLED [facility] AND WAS CONNECTED TO [facility] IN THE REPOSITORY DEPT AND WAS TOLD THE PT DID GET SERTRALINE 50MG ON 03-01-2020 #90/90DS, BUT COULD NOT FIND ANY OTHER MEDICATIONS DISPENSED THRU THAT PROGRAM. [facility] WAS LISTED ON HIS PROFILE UNDER PREFERRED PHARMACIES HOWEVER THEY HAVE NOT FILLED ANYTHING FOR AT LEAST 3 YEARS FOR THE ABOVE REASONS I DID NOT INCLUDE ATORVASTATIN ON THE MED REC. OTC MEDS: ZYRTEC
[2020-04-29 12:00] VITALS: BP 110/62
--- NOTE | 2020-04-29 13:56 | NUR ---
"RD ASSESSMENT PMHx: hypercholesterolemia; HTN; DM; PT INTERACTION: Pt was awake and pleasant during nutrition assessment. Pt states current appetite is not bad. Note pt currently on Clear Liquid diet, and no meals have been recorded, per chart review. Pt states following a regular diet at home, and has no issues with chewing/swallowing food. Pt states some recent issues with nausea, vomiting, and diarrhea. Note episode of emesis on 04/28, per chart review. Note last BM was 04/29, and pt not currently on bowel regimen per chart review. Pt states no recent wt changes. Note recent 1# wt loss x6mon, per chart review. Pt states current DM management is good. Note unable to determine recent HbA1c, per chart review. ABNORMAL NUTRITION-RELATED LAB VALUES LOW: Ca 8.3; HIGH: BUN 21; lipase 80; Est. kcal needs: 3076-5609 kcal | 15-18 kcal/kg Est. Pro needs: 119-149 g Pro | 0.8-1.0 g Pro/kg PES STATEMENT: Inadequate oral intake (NI-2.1) related to loss of appetite, nausea, vomiting, and diarrhea, as evidenced by pt interview INTERVENTION: Continue with current diet order of Clear Liquid diet. Pt may benefit from diet advancement to consistent CHO diet, as medically able and as tolerated. Offered diet education on DM management, but pt declined at this time. May attempt to offer again prior to discharge. Will continue to follow and reassess as pt needs, intake, and status change. Stephon LARSON, MS RD LD [phone] cell"
[2020-04-29 15:55] VITALS: BP 136/75
[2020-04-29 17:47] VITALS: BP 136/75
--- NOTE | 2020-04-29 17:47 | NUR ---
HILARIA GUSTAFSON V demonstrates understanding of discharge instructions and accurately returns instructions upon questioning. Copy of Post-Discharge Instructions and Medication Discharge Instructions given to patient. HILARIA GUSTAFSON V is able to manage continuing needs after discharge. Patients belongings returned to patient. Skin dry and intact; no breakdown noted. Patient discharged from [facility]- on 04/29/20 at 1750. HILARIA GUSTAFSON V left floor via wheelchair, accompanied by staff.
--- NOTE | 2020-04-30 05:19 | Discharge Summary ---
Discharge Summary Hospital Course Was the Problem List Reviewed?: Yes Problems/Dx: (1) Pancreatitis Status: Acute Qualifiers: Qualified Codes: K85.90 - Acute pancreatitis without necrosis or infection, unspecified (2) Nausea vomiting and diarrhea Status: Acute (3) Vasovagal syncope Status: Acute (4) Dehydration Status: Acute Hospital Course Date of Admission: Apr 28, 2020 at 15:20 Admission Diagnosis : Family Physician/Provider: [place] [place] Date of Discharge: 04/30/20 Discharge Diagnosis: acute pancreatitis, hypovolemia Hospital Course: see progress note Labs and Pending Lab Test: Laboratory Tests 04/29/20 05:32: White Blood Count 6.1, Red Blood Count 4.82, Hemoglobin 13.7, Hematocrit 43, Mean Corpuscular Volume 90, Mean Corpuscular Hemoglobin 28, Mean Corpuscular Hemoglobin Concent 32, Red Cell Distribution Width 13.4, Platelet Count 218, Mean Platelet Volume 10.7, Immature Granulocyte % (Auto) 0, Neutrophils (%) (Auto) 53, Lymphocytes (%) (Auto) 33, Monocytes (%) (Auto) 11, Eosinophils (%) (Auto) 3, Basophils (%) (Auto) 0, Neutrophils # (Auto) 3.2, Lymphocytes # (Auto) 2.0, Monocytes # (Auto) 0.6, Eosinophils # (Auto) 0.2, Basophils # (Auto) 0.0, Immature Granulocyte # (Auto) 0.0, Sodium Level 138, Potassium Level 3.9, Chloride Level 107, Carbon Dioxide Level 24, Anion Gap 7, Blood Urea Nitrogen 21H, Creatinine 0.87, Estimat Glomerular Filtration Rate > 60, BUN/Creatinine Ratio 24, Glucose Level 94, Calcium Level 8.3L, Corrected Calcium 8.7, Total Bilirubin 0.6, Aspartate Amino Transf (AST/SGOT) 14, Alanine Aminotransferase (ALT/SGPT) 28, Alkaline Phosphatase 94, Total Protein 6.4, Albumin 3.5, Lipase 80H Microbiology 04/28/20 Blood Culture - Preliminary, Resulted No growth Home Meds Active Reported Diclofenac Sodium 75 Mg Tablet.dr 75 Mg PO BID PRN Cyclobenzaprine HCl 10 Mg Tablet 10 Mg PO BID PRN Cetirizine HCl 10 Mg Tablet 10 Mg PO DAILY Lisinopril 20 Mg Tablet 20 Mg PO DAILY LAST FILLED 01-01-2020 # DAY SUPPLY Omeprazole 40 Mg Capsule. 40 Mg PO DAILY BEFORE BREAKFAST Zoloft (Sertraline HCl) 50 Mg Tablet 50 Mg PO 1999 Assessment/Pt Instructions see pcp 1 week Discharge Planning: <30 minutes discharge planning Discharge Instructions Discharge Diet: Soft Diet Activity as Tolerated: Yes Discharge Physical Examination Vital Signs Vital Signs Date Time Temp Pulse Resp B/P (MAP) Pulse Ox O2 Delivery O2 Flow Rate FiO2 04/29/20 17:47 36.6 71 20 136/75 98 Room Air General Appearance: No Apparent Distress, WD/WN Allergies: Coded Allergies: neomycin (Unverified Allergy, Mild, HIVES, 11/08/19) pseudoephedrine (Unverified Allergy, Unknown, 03/14/14) triprolidine (Unverified Allergy, Unknown, 03/14/14) Discharge Summary Date of Admission Apr 28, 2020 at 15:20 Date of Discharge Apr 29, 2020 at 17:49 Discharge Date: Apr 29, 2020 Admission Diagnosis Assessment: Severe N/V/D Severe hypovolemia Q 3 months of N/V/D DM HTN HLP Obesity Presumed MART Plan: Dr Lucio CLD Pain control IVF Discharge Diagnosis Assessment: Severe N/V/D Severe hypovolemia Q 3 months of N/V/D DM HTN HLP Obesity Presumed MART Plan: Dr Khadijah BUNDY Pain control IVF DC home if ok with Dr Lucio (1) Pancreatitis Status: Acute Qualifiers: Qualified Codes: K85.90 - Acute pancreatitis without necrosis or infection, unspecified (2) Nausea vomiting and diarrhea Status: Acute (3) Vasovagal syncope Status: Acute (4) Dehydration Status: Acute Clinical Quality Measures DVT/VTE Risk/Contraindication: Risk Factor Score Per Nursin RFS Level Per Nursing on Admit: 2=Moderate LUCA LANDAVERDE DO Apr 30, 2020 05:19
== END 2020-04-29 17:47 | disposition home or self-care (01) ==
LOC: EDUNIT# 09:12 → ER FS 09:13 → 4TH 15:20 → UNDOADMOB 15:20 → 4TH 15:30 → UNDODISOB 04-29 17:49
PROVIDERS: ADMIT Internal Medicine; ATTEND Internal Medicine
DX: R55 Syncope and collapse (principal); K85.90 Acute pancreatitis without necrosis or infection, unspecified; E86.0 Dehydration; E86.1 Hypovolemia; I10 Essential (primary) hypertension; E78.5 Hyperlipidemia, unspecified; E11.9 Type 2 diabetes mellitus without complications; E78.00 Pure hypercholesterolemia, unspecified; F41.9 Anxiety disorder, unspecified; F32.9 Major depressive disorder, single episode, unspecified; K21.9 Gastro-esophageal reflux disease without esophagitis; E66.9 Obesity, unspecified; Z68.42 Body mass index [BMI] 45.0-49.9, adult; Z79.899 Other long term (current) drug therapy; Z88.1 Allergy status to other antibiotic agents; Z88.8 Allergy status to other drugs, medicaments and biological substances
CPT/HCPCS: 36415; 70450; 74177; 80053 ×2; 80306; 81000; 83605; 83690 ×2; 83735; 83880; 84484; 85007; 85025; 85027; 87040; 93005; 93041; 96374; 99284; G0378; 90686

== ENCOUNTER 2020-08-17 07:32 | Emergency (ER) | payer OTHER ==
[~2020-08-17] VITALS: Ht 182.8 cm; Wt 144.0 kg
[~2020-08-17 07:32] MED LIST changes: +CYCL10TA9 PO; +LIDO700A45 TP; -LISI-552 PO; +LISI20TA26 PO
[2020-08-17] MEDS: NS IV 1000 ML 1,000 ML IV SCH ×2 (07:52→09:04)
[2020-08-17 07:53] LABS: HEMATOCRIT 48 % (40-54); HEMOGLOBIN 15.5 G/DL (13.3-17.7); MEAN CORPUSCULAR HEMOGLOBIN 29 PG (25-34); MEAN CORPUSCULAR HGB CONC 33 G/DL (32-36); MEAN CORPUSCULAR VOLUME 88 FL (80-99); WHITE BLOOD COUNT 7.1 10^3/uL (4.3-11.0)
[2020-08-17 07:54] LABS: BASOPHILS % (AUTO) 0 % (0-10); EOSINOPHILS # (AUTO) 0.3 10^3/uL (0.0-0.3); EOSINOPHILS % (AUTO) 5 % (0-10); LYMPHOCYTES # (AUTO) 1.1 X 10^3 (1.0-4.0); LYMPHOCYTES % (AUTO) 15 % (12-44); MEAN PLATELET VOLUME 10.8 FL (7.4-10.4); MONOCYTES % (AUTO) 14 % (0-12); NEUTROPHILS # (AUTO) 4.7 X 10^3 (1.8-7.8); NEUTROPHILS % (AUTO) 66 % (42-75); PLATELET COUNT 253 10^3/uL (130-400)
--- NOTE | 2020-08-17 07:56 | ED Abdominal Pain ---
General Chief Complaint: Abdominal/GI Problems Stated Complaint: DIARRHEA | DEHYDRATED Nursing Triage Note: Patient reports diarrhea since Tuesday, states he has had intermittent diarrhea and nausea for 3 years without a definitive diagnosis. He reports feeling lightheaded and feeling palpitations since yesterday. Sepsis Screen: No Definite Risk Source of Information: Patient History of Present Illness Date Seen by Provider: Aug 17, 2020 Time Seen by Provider: 07:35 Initial Comments Patient is a 45-year-old male with history of chronic intermittent loose stools following gallbladder surgery 3 years ago who presents with 2-day course of GI illness with nausea vomiting and watery diarrhea. Patient states he has had very little to eat or drink in the past 2 days and feels generally weak lightheaded and has a mild headache. He is no longer nauseated and has not vomited in the past 24 hours, but has continued to have multiple watery episodes of diarrhea with sporadic abdominal cramping. Pain is rated moderate to severe and does not exhibit any palliative or provocative features. Abdominal pain cramping and is described as sharp, migratory and waxes and wanes. It is most pronounced when having diarrhea. Denies bloody diarrhea. He denies recent travel, antibiotic use, camping, known GI illness exposure or toxic food ingestion. He has not had fever chills or sweats. He denies chest pain shortness of breath and palpitations. He is passing gas. Previous cholecystectomy. No other acute symptoms or complaints. Timing/Duration: 3-4 Days Severity/Quality: Moderate Location: Epigastric, Generalized Abdomen Radiation: Other Activities at Onset: Other Modifying Factors: Improves With Other Associated Symptoms: Other Allergies and Home Medications Allergies Coded Allergies: neomycin (Unverified Allergy, Mild, HIVES, 11/08/19) pseudoephedrine (Unverified Allergy, Unknown, 03/14/14) triprolidine (Unverified Allergy, Unknown, 03/14/14) Home Medications Cetirizine HCl 10 Mg Tablet, 10 MG PO DAILY, (Reported) Cyclobenzaprine HCl 10 Mg Tablet, 10 MG PO BID PRN for MUSCLE SPASMS, (Reported) Diclofenac Sodium 75 Mg Tablet.dr 75 MG PO BID PRN for INLAMMATION/PAIN, (Reported) Lisinopril 20 Mg Tablet, 20 MG PO DAILY, (Reported) LAST FILLED 01-01-2020 #30/30 DAY SUPPLY Omeprazole 40 Mg Capsule.dr, 40 MG PO DAILY BEFORE BREAKFAST, (Reported) Sertraline HCl 50 Mg Tablet, 50 MG PO 1999, (Reported) Patient Home Medication List Home Medication List Reviewed: Yes Review of Systems Review of Systems Constitutional: see HPI EENTM: See HPI Respiratory: See HPI Cardiovascular: See HPI Gastrointestinal: See HPI Genitourinary: See HPI Musculoskeletal: see HPI Skin: see HPI Psychiatric/Neurological: See HPI Endocrine: See HPI Hematologic/Lymphatic: See HPI All Other Systems Reviewed Negative Unless Noted: Yes Past Axadrhf-Ggjxjg-Upnqsw Hx Past Med/Social Hx: Reviewed Nursing Past Med/Soc Hx Patient Social History Alcohol Use: Denies Use Smoking Status: Never a Smoker 2nd Hand Smoke Exposure: No Recent Infectious Disease Expo: No Recent Hopitalizations: No Immunizations Up To Date Date of Influenza Vaccine: Feb 05, 2019 Seasonal Allergies Seasonal Allergies: Yes Past Medical History Surgeries: Yes (Varicose vein ligation, FINGER, TAILBONE ) Gallbladder, Orthopedic Respiratory: No Currently Using CPAP: No Currently Using BIPAP: No Cardiac: Yes High Cholesterol, Hypertension Neurological: No Sexually Transmitted Disease: No HIV/AIDS: No Genitourinary: No Gastrointestinal: Yes Abdominal Hernia, Gall Bladder Disease Musculoskeletal: No Endocrine: Yes (HX DIABETES) Diabetes, Non-Insulin dep HEENT: No (GLASSES) Loss of Vision: Denies Hearing Impairment: Denies Cancer: No Psychosocial: Yes Anxiety, Depression Integumentary: No Blood Disorders: No Adverse Reaction/Blood Tranf: No (N/A) Family Medical History Hypertension, Other Conditions/Hx Physical Exam Vital Signs Vital Signs - First Documented 08/17/20 07:34 Temp 36.3 Pulse 94 Resp 16 B/P (MAP) 143/83 (103) Pulse Ox 97 O2 Delivery Room Air Capillary Refill : Less Than 3 Seconds Height/Weight/BMI Height: 6'" Weight: 296lbs. oz. 134.142855sg; 43.00 BMI Method: General Appearance: WD/WN, no apparent distress HEENT: PERRL/EOMI, TMs normal Neck: non-tender, full range of motion, supple Respiratory: chest non-tender, lungs clear Cardiovascular: normal peripheral pulses Gastrointestinal: soft, other (Obesity compromising exam.) Extremities: normal range of motion, normal inspection, no pedal edema Back: normal inspection Neurologic/Psychiatric: no motor/sensory deficits, alert, normal mood/affect, oriented x 3 Skin: normal color Focused Exam Sepsis Stage: Ruled Out Progress/Results/Core Measures Results/Orders Lab Results Laboratory Tests Test 08/17/20 07:47 Range/Units White Blood Count 7.1 4.3-11.0 10^3/uL Red Blood Count 5.41 4.35-5.85 10^6/uL Hemoglobin 15.5 13.3-17.7 G/DL Hematocrit 48 40-54 % Mean Corpuscular Volume 88 80-99 FL Mean Corpuscular Hemoglobin 29 25-34 PG Mean Corpuscular Hemoglobin Concent 33 32-36 G/DL Red Cell Distribution Width 13.6 10.0-14.5 % Platelet Count 253 130-400 10^3/uL Mean Platelet Volume 10.8 H 7.4-10.4 FL Neutrophils (%) (Auto) 66 42-75 % Lymphocytes (%) (Auto) 15 12-44 % Monocytes (%) (Auto) 14 H 0-12 % Eosinophils (%) (Auto) 5 0-10 % Basophils (%) (Auto) 0 0-10 % Neutrophils # (Auto) 4.7 1.8-7.8 X 10^3 Lymphocytes # (Auto) 1.1 1.0-4.0 X 10^3 Monocytes # (Auto) 1.0 0.0-1.0 X 10^3 Eosinophils # (Auto) 0.3 0.0-0.3 10^3/uL Basophils # (Auto) 0.0 0.0-0.1 10^3/uL Sodium Level 136 135-145 MMOL/L Potassium Level 4.3 3.6-5.0 MMOL/L Chloride Level 104 98-107 MMOL/L Carbon Dioxide Level 24 21-32 MMOL/L Anion Gap 8 5-14 MMOL/L Blood Urea Nitrogen 21 H 7-18 MG/DL Creatinine 0.98 0.60-1.30 MG/DL Estimat Glomerular Filtration Rate > 60 BUN/Creatinine Ratio 21 Glucose Level 127 H 70-105 MG/DL Calcium Level 8.7 8.5-10.1 MG/DL Corrected Calcium 8.7 8.5-10.1 MG/DL Total Bilirubin 0.3 0.1-1.0 MG/DL Aspartate Amino Transf (AST/SGOT) 21 5-34 U/L Alanine Aminotransferase (ALT/SGPT) 39 0-55 U/L Alkaline Phosphatase 123 40-136 U/L Total Protein 6.8 6.4-8.2 GM/DL Albumin 4.0 3.2-4.5 GM/DL Lipase 147 H 8-78 U/L My Orders Orders - GODWIN CHERRY DO Cbc With Automated Diff (08/17/20 07:46) Comprehensive Metabolic Panel (08/17/20 07:46) Lipase (08/17/20 07:46) Ns Iv 1000 Ml (Sodium Chloride 0.9%) (08/17/20 08:00) Ondansetron Injection (Zofran Injectio (08/17/20 08:00) Medications Given in ED Current Medications Medications Dose Ordered Sig/Fiorella Route Start Time Stop Time Status Last Admin Dose Admin Ondansetron HCl 4 mg ONCE ONCE IVP 08/17/20 08:00 08/17/20 08:01 DC 08/17/20 07:52 4 MG Vital Signs/I&O 08/17/20 07:34 Temp 36.3 Pulse 94 Resp 16 B/P (MAP) 143/83 (103) Pulse Ox 97 O2 Delivery Room Air Blood Pressure Mean: 103 Departure Communication (Admissions) Patient's vital signs, labs, reviewed. Abdomen soft, nonsurgical. Symptoms improved with treatment. Suspect GI illness prevalent in the community. Other diagnoses considered but felt less likely. Will treat supportive Lay with watch ful waiting and close PCP follow-up. Return precautions reviewed. Patient verbalizes understanding agreement with discharge instructions prior to departure. Impression Primary Impression: Abdominal pain Additional Impression: Diarrhea Disposition: HOME, SELF-CARE Condition: Stable Departure-Patient Inst. Decision time for Depature: 08:54 Referrals: MATY DAVILA APRN (PCP) Primary Care Physician [facility] (Family) Primary Care Physician Patient Instructions: Diarrhea, Adult ED, Severe Abdominal Pain, Adult (DC) Add. Discharge Instructions: You were evaluated in the emergency department for abdominal pain diarrhea. Lab work was performed and is nondiagnostic. The exact cause of your illness is not being determined. Please take Zofran as needed for nausea and Imodium OTC as needed for diarrhea. Eat soft bland diet as tolerated. Follow-up with your PCP in 2 to 3 days for reevaluation. Return to the ED if new or worsening symptoms. All discharge instructions reviewed with patient and/or family. Voiced understanding. Scripts Ondansetron HCl (Zofran) 4 Mg Tab 4 MG PO Q6H PRN for NAUSEA/VOMITING, #10 TAB Prov: GODWIN CHERRY DO 08/17/20 GODWIN CHERRY DO Aug 17, 2020 07:55
[2020-08-17] MEDS ORDERED: ONDANSETRON 4 MG/2 ML (SDV) Z0FRAN IVP ONE (08:00)
[2020-08-17 08:14] LABS: ALANINE AMINOTRANSFERASE 39 U/L (0-55); ALKALINE PHOSPHATASE 123 U/L (40-136); BILIRUBIN,TOTAL 0.3 MG/DL (0.1-1.0); BUN/CREATININE RATIO 21; CALCIUM 8.7 MG/DL (8.5-10.1); CARBON DIOXIDE 24 MMOL/L (21-32); CHLORIDE 104 MMOL/L (98-107); CREATININE SERUM 0.98 MG/DL (0.60-1.30); GFR ESTIMATED > 60; GLUCOSE 127 MG/DL (70-105); POTASSIUM 4.3 MMOL/L (3.6-5.0); SODIUM 136 MMOL/L (135-145)
[2020-08-17 08:15] LABS: LIPASE 147 U/L (8-78); TOTAL PROTEIN 6.8 GM/DL (6.4-8.2)
[2020-08-17] MEDS ORDERED: ONDN4T PO (08:56)
[2020-08-17 08:59] VITALS: BP 139/70
== END 2020-08-17 08:59 | disposition home or self-care (01) ==
LOC: EDUNIT# 07:32 → ER FS 07:35
DX: R10.84 Generalized abdominal pain (principal); R19.7 Diarrhea, unspecified; I10 Essential (primary) hypertension; E11.9 Type 2 diabetes mellitus without complications; F41.9 Anxiety disorder, unspecified; F32.9 Major depressive disorder, single episode, unspecified; Z88.8 Allergy status to other drugs, medicaments and biological substances
CPT/HCPCS: 36415; 80053; 83690; 85025

== ENCOUNTER 2021-10-21 19:18 | Emergency (ER) | payer SELFPAY ==
[~2021-10-21] VITALS: Ht 182.8 cm; Wt 153.2 kg
[~2021-10-21 19:18] MED LIST changes: +CYCL10TA25 PO; -CYCL10TA9 PO; -OMEP40CA27 PO; +OMEP40CA6 PO; +ONDN4T PO
--- NOTE | 2021-10-21 19:54 | ED GI ---
General Chief Complaint: Abdominal/GI Problems Stated Complaint: DIARRHEA,LIGHTHEADED,BLOATED,NAUSEA Nursing Triage Note: Pt c/o diarrhea x 4 days with no relief from immodium. PCP rx Xifaxan that did help but reports he his having nausea and feels bloated. Source of Information: Patient History of Present Illness Date Seen by Provider: Oct 21, 2021 Time Seen by Provider: 19:30 Initial Comments 46-year-old male presenting with complaints of over 4 days of diarrhea and nausea. He states he has had this happen before and it usually about this time every year when he gets overheated. He has diarrhea and then gets dehydrated and needs IV fluids and electrolyte replacement. He had Xifaxan that was prescribed last year when this happened and he tried taking 1 pill twice a day at that when the Imodium was not helping. He now just feels very bloated and like his abdomen is distended. He does have nausea and has been drinking but has been too nauseated to eat. He denies any actual vomiting. He has not had any fever or chills. No blood in the urine or stool, pain with urination, chest pain, shortness of breath Timing/Duration: 4-5 Days Severity/Quality: Moderate (Bloating) Location: Generalized Abdomen Activities at Onset: None Modifying Factors: Worsens With Exercise, Worsens With Movement, Worsens With Palpation Associated Symptoms: No Back Pain, No Chest Pain, No Diaphoresis, No Fever/Chills, No Fatigue, No Headache, No Heartburn; Nausea/Vomiting (Nausea but no vomiting); No Rash, No Shortness of Air; Swelling/Mass in Abdomen (Feels like his abdomen is swollen and bloated); No Syncope, No Weakness Allergies and Home Medications Allergies Coded Allergies: neomycin (Unverified Allergy, Mild, HIVES, 11/08/19) pseudoephedrine (Unverified Allergy, Unknown, 03/14/14) triprolidine (Unverified Allergy, Unknown, 03/14/14) Patient Home Medication List Home Medication List Reviewed: Yes Cetirizine HCl (Cetirizine HCl) 10 Mg Tablet, 10 MG PO DAILY, (Reported) Entered as Reported by: MERARY CABRAL on 11/08/19 1112 Cyclobenzaprine HCl (Cyclobenzaprine HCl) 10 Mg Tablet, 10 MG PO BID PRN for MUSCLE SPASMS, (Reported) Entered as Reported by: HUGH ROLLINS on 04/29/20 1140 Diclofenac Sodium (Diclofenac Sodium) 75 Mg Tablet.dr, 75 MG PO BID PRN for INLAMMATION/PAIN, (Reported) Entered as Reported by: HUGH ROLLINS on 04/29/20 1140 Lisinopril (Lisinopril) 20 Mg Tablet, 20 MG PO DAILY, (Reported) Entered as Reported by: MERARY CABRAL on 11/08/19 1110 Omeprazole (Omeprazole) 40 Mg Capsule.dr, 40 MG PO DAILY BEFORE BREAKFAST, (Reported) Entered as Reported by: MERARY CABRAL on 11/08/19 1110 Ondansetron HCl (Zofran) 4 Mg Tab, 4 MG PO Q6H PRN for NAUSEA/VOMITING Prescribed by: GODWIN CHERRY on 08/17/20 0856 Sertraline HCl (Zoloft) 50 Mg Tablet, 50 MG PO 2000, (Reported) Entered as Reported by: MARIBELL CANO on 10/23/192042 Review of Systems Review of Systems Constitutional: No chills, No fever EENTM: No Symptoms Reported Respiratory: No Symptoms Reported Cardiovascular: No Symptoms Reported Gastrointestinal: See HPI Genitourinary: No Symptoms Reported Musculoskeletal: no symptoms reported Skin: no symptoms reported Psychiatric/Neurological: No Symptoms Reported Endocrine: No Symptoms Reported Hematologic/Lymphatic: No Symptoms Reported Past Cgyzzhx-Lgejvi-Wwxwsc Hx Patient Social History Tobacco Use?: No Use of E-Cig and/or Vaping dev: No Substance use?: No Alcohol Use?: No Pt feels they are or have been: No Immunizations Up To Date First/Initial COVID19 Vaccinat: [employer] 10/2020 Second COVID19 Vaccination Greg: [employer] 12/2020 Seasonal Allergies Seasonal Allergies: Yes Past Medical History Surgeries: Yes (Varicose vein ligation, FINGER, TAILBONE ) Gallbladder, Orthopedic Respiratory: No Currently Using CPAP: No Currently Using BIPAP: No Cardiac: Yes High Cholesterol, Hypertension Neurological: No Sexually Transmitted Disease: No HIV/AIDS: No Genitourinary: No Gastrointestinal: Yes Abdominal Hernia, Gall Bladder Disease Musculoskeletal: No Endocrine: Yes (HX DIABETES) Diabetes, Non-Insulin dep HEENT: No (GLASSES) Loss of Vision: Denies Hearing Impairment: Denies Cancer: No Psychosocial: Yes Anxiety, Depression Integumentary: No Blood Disorders: No Adverse Reaction/Blood Tranf: No (N/A) Family Medical History Hypertension, Other Conditions/Hx Physical Exam Vital Signs Vital Signs - First Documented 10/21/21 19:22 Temp 36.4 Pulse 78 Resp 20 B/P (MAP) 143/77 (99) Pulse Ox 95 O2 Delivery Room Air Capillary Refill : Less Than 3 Seconds Height/Weight/BMI Height: 6'" Weight: 296lbs. oz. 134.375826qg; 45.00 BMI Method: General Appearance: WD/WN, obese HEENT: PERRL/EOMI, pharynx normal Neck: non-tender, full range of motion, supple, normal inspection Respiratory: chest non-tender, lungs clear, normal breath sounds, no respiratory distress, no accessory muscle use Cardiovascular: normal peripheral pulses, regular rate, rhythm Gastrointestinal: non tender, soft, no pulsatile mass, abnormal bowel sounds (Hyperactive bowel sounds), distended; No guarding, No rebound, No tenderness (Reports he feels bloating sensation but not pain with palpation) Rectal: deferred Extremities: normal range of motion, non-tender, normal capillary refill 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, no motor/sensory deficits, alert, oriented x 3 Skin: normal color, warm/dry Progress/Results/Core Measures Results/Orders Lab Results Laboratory Tests Test 10/21/21 20:10 10/21/21 21:10 Range/Units White Blood Count 10.8 4.3-11.0 10^3/uL Red Blood Count 4.97 4.30-5.52 10^6/uL Hemoglobin 14.0 13.3-17.7 g/dL Hematocrit 43 40-54 % Mean Corpuscular Volume 87 80-99 fL Mean Corpuscular Hemoglobin 28 25-34 pg Mean Corpuscular Hemoglobin Concent 33 32-36 g/dL Red Cell Distribution Width 13.6 10.0-14.5 % Platelet Count 221 130-400 10^3/uL Mean Platelet Volume 9.9 9.0-12.2 fL Immature Granulocyte % (Auto) 0 % Neutrophils (%) (Auto) 80 H 42-75 % Lymphocytes (%) (Auto) 11 L 12-44 % Monocytes (%) (Auto) 9 0-12 % Eosinophils (%) (Auto) 0 0-10 % Basophils (%) (Auto) 0 0-10 % Neutrophils # (Auto) 8.6 H 1.8-7.8 10^3/uL Lymphocytes # (Auto) 1.2 1.0-4.0 10^3/uL Monocytes # (Auto) 0.9 0.0-1.0 10^3/uL Eosinophils # (Auto) 0.0 0.0-0.3 10^3/uL Basophils # (Auto) 0.0 0.0-0.1 10^3/uL Immature Granulocyte # (Auto) 0.0 0.0-0.1 10^3/uL Sodium Level 142 135-145 MMOL/L Potassium Level 4.4 3.6-5.0 MMOL/L Chloride Level 107 98-107 MMOL/L Carbon Dioxide Level 24 21-32 MMOL/L Anion Gap 11 5-14 MMOL/L Blood Urea Nitrogen 19 H 7-18 MG/DL Creatinine 0.92 0.60-1.30 MG/DL Estimat Glomerular Filtration Rate 104 BUN/Creatinine Ratio 21 Glucose Level 117 H 70-105 MG/DL Calcium Level 8.9 8.5-10.1 MG/DL Corrected Calcium 8.7 8.5-10.1 MG/DL Total Bilirubin 0.4 0.1-1.0 MG/DL Aspartate Amino Transf (AST/SGOT) 32 5-34 U/L Alanine Aminotransferase (ALT/SGPT) 49 0-55 U/L Alkaline Phosphatase 104 40-136 U/L Total Protein 7.5 6.4-8.2 GM/DL Albumin 4.3 3.2-4.5 GM/DL Lipase 38 8-78 U/L Urine Color YELLOW Urine Clarity CLEAR Urine pH 6.0 5-9 Urine Specific [place] >=1.030 1.016-1.022 Urine Protein NEGATIVE NEGATIVE Urine Glucose (UA) NEGATIVE NEGATIVE Urine Ketones NEGATIVE NEGATIVE Urine Nitrite NEGATIVE NEGATIVE Urine Bilirubin NEGATIVE NEGATIVE Urine Urobilinogen 0.2 < = 1.0 MG/DL Urine Leukocyte Esterase NEGATIVE NEGATIVE Urine RBC (Auto) NEGATIVE NEGATIVE Urine RBC NONE /HPF Urine WBC 0-2 /HPF Urine Squamous Epithelial Cells RARE /HPF Urine Crystals NONE /LPF Urine Bacteria NEGATIVE /HPF Urine Casts NONE /LPF Urine Mucus MODERATE H /LPF Urine Culture Indicated NO My Orders Orders - ENYART,DIANA E MD Comprehensive Metabolic Panel (10/21/21 20:06) Lipase (10/21/21 20:06) Ua Culture If Indicated (10/21/21 20:06) Ed Iv/Invasive Line Start (10/21/21 20:06) Cbc With Automated Diff (10/21/21 20:06) Ct Abdomen/Pelvis Wo (10/21/21 20:06) Ns Iv 1000 Ml (Sodium Chloride 0.9%) (10/21/21 20:06) Vital Signs/I&O 10/21/21 19:22 Temp 36.4 Pulse 78 Resp 20 B/P (MAP) 143/77 (99) Pulse Ox 95 O2 Delivery Room Air Blood Pressure Mean: 99 Progress Progress Note #1: Progress Note Check labs and CT scan to evaluate for electrolyte imbalance, colitis, diverticulitis, bowel obstruction, pancreatitis. Give normal saline IV fluids 1 L bolus for hydration. Patient states that he had taken a Zofran dissolving tablet prior to coming to the ED. He states his nausea is doing a lot better right now. Progress Note #2: Progress Note CBC and chemistry did not show any acute significant abnormality. His urinalysis was concentrated with an elevated specific gravity greater than 1.030. His CT scan does not show any acute process such as bowel obstruction, appendicitis, colitis, diverticulitis. Counseled patient on findings and results. Continue with fluids and hydration. Try Reglan for nausea and motility of his gut Diagnostic Imaging Diagonstic Imaging: CT Plain Films/CT/US/NM/MRI: abdomen, pelvis Comments NAME: HILARIA GUSTAFSON V MED REC#: [id number] PT STATUS: REG ER : 1975 PHYSICIAN: DIANA LAFLEUR MD ADMIT DATE: 10/21/21/ER FS Draft Date of Exam:10/21/21 CT ABDOMEN/PELVIS WO INDICATION: Abdominal bloating, nausea and diarrhea x 4 days. EXAMINATION: CT of the abdomen and pelvis without contrast, 10/21/2021. All CT scans use one or more of the following dose optimizing techniques: automated exposure control, MA and/or KvP adjustment based on patient size and exam type or iterative reconstruction. COMPARISON: 04/28/2020. FINDINGS: Visualized lung bases clear. Nonopacified liver and spleen unremarkable. There is evidence of previous cholecystectomy. The adrenal glands and pancreas unremarkable. Kidneys unremarkable. Anterior abdominal wall hernia is noted containing fat. Appendix normal. There is a nonobstructed bowel gas pattern. There is no ascites or free air. There is no acute osseous abnormality. IMPRESSION: Incidental findings with no acute process in the abdomen or pelvis. Dictated on workstation # [id number] Dict: 10/21/212036 Trans: 10/21/212123 [facility] [id number] Interpreted by: ABIMAEL FLOWERS MD Electronically signed by: Reviewed: Reviewed by Me Departure Impression Primary Impression: Abdominal bloating Additional Impressions: Diarrhea Qualified Codes: R19.7 - Diarrhea, unspecified Nausea alone Disposition: HOME, SELF-CARE Condition: Stable Departure-Patient Inst. Decision time for Depature: 21:47 Referrals: MATY DAVILA APRN (PCP) Primary Care Physician [facility] (Family) Primary Care Physician Patient Instructions: Dehydration, Adult ED, Diarrhea, Adult ED, Gas and Bloating Add. Discharge Instructions: Continued stay well-hydrated and drink plenty of fluids. Drink electrolyte drinks some water to help with hydration. Use nausea medicine to help with motility of abdomen and keep your stomach settled. Check back with the clinic for continued concerns All discharge instructions reviewed with patient and/or family. Voiced understanding. Scripts Metoclopramide HCl (Metoclopramide HCl) 10 Mg Tablet 10 MG PO TID PRN for NAUSEA/VOMITING for 5 Days, #15 TAB 0 Refills Prov: DIANA LAFLEUR MD 10/21/21 DIANA LAFLEUR MD Oct 21, 2021 19:53
[2021-10-21] MEDS ORDERED: NS IV 1000 ML 1,000 ML IV STA (20:06)
[2021-10-21 20:15] LABS: BASOPHILS % (AUTO) 0 % (0-10); EOSINOPHILS % (AUTO) 0 % (0-10); HEMATOCRIT 43 % (40-54); LYMPHOCYTES # (AUTO) 1.2 10^3/uL (1.0-4.0); LYMPHOCYTES % (AUTO) 11 % (12-44); MEAN CORPUSCULAR HEMOGLOBIN 28 pg (25-34); MEAN CORPUSCULAR HGB CONC 33 g/dL (32-36); MEAN CORPUSCULAR VOLUME 87 fL (80-99); MEAN PLATELET VOLUME 9.9 fL (9.0-12.2); MONOCYTES # (AUTO) 0.9 10^3/uL (0.0-1.0); MONOCYTES % (AUTO) 9 % (0-12); NEUTROPHILS # (AUTO) 8.6 10^3/uL (1.8-7.8); NEUTROPHILS % (AUTO) 80 % (42-75); PLATELET COUNT 221 10^3/uL (130-400); WHITE BLOOD COUNT 10.8 10^3/uL (4.3-11.0)
[2021-10-21 20:37] LABS: BILIRUBIN,TOTAL 0.4 MG/DL (0.1-1.0); CALCIUM 8.9 MG/DL (8.5-10.1); CREATININE SERUM 0.92 MG/DL (0.60-1.30); POTASSIUM 4.4 MMOL/L (3.6-5.0)
[2021-10-21 20:38] LABS: ALBUMIN 4.3 GM/DL (3.2-4.5); TOTAL PROTEIN 7.5 GM/DL (6.4-8.2)
[2021-10-21 21:13] LABS: BILIRUBIN,URINE NEGATIVE (NEGATIVE); CLARITY,URINE CLEAR; COLOR,URINE YELLOW; GLUCOSE, URINE (UA) NEGATIVE (NEGATIVE); KETONES,URINE NEGATIVE (NEGATIVE); LEUKOCYTE ESTERASE ,URINE NEGATIVE (NEGATIVE); NITRITE,URINE NEGATIVE (NEGATIVE); PROTEIN,URINE NEGATIVE (NEGATIVE)
[2021-10-21 21:16] LABS: BACTERIA,URINE NEGATIVE /HPF; SQUAMOUS EPITHELIAL CELL,UR RARE /HPF; WBC,URINE 0-2 /HPF
--- NOTE | 2021-10-21 21:25 | Diagnostic Imaging Report ---
INDICATION: Abdominal bloating, nausea and diarrhea x 4 days. EXAMINATION: CT of the abdomen and pelvis without contrast, 10/21/2021. All CT scans use one or more of the following dose optimizing techniques: automated exposure control, MA and/or KvP adjustment based on patient size and exam type or iterative reconstruction. COMPARISON: 04/28/2020. FINDINGS: Visualized lung bases clear. Nonopacified liver and spleen unremarkable. There is evidence of previous cholecystectomy. The adrenal glands and pancreas unremarkable. Kidneys unremarkable. Anterior abdominal wall hernia is noted containing fat. Appendix normal. There is a nonobstructed bowel gas pattern. There is no ascites or free air. There is no acute osseous abnormality. IMPRESSION: Incidental findings with no acute process in the abdomen or pelvis. Dictated by: Dictated on workstation # [id number]
[2021-10-21] MEDS ORDERED: METOCLOPRAMIDE INJ 10 MG/2 ML (REGLAN) IVP STA (21:46)
[2021-10-21] MEDS ORDERED: MTC10T PO (21:48)
[2021-10-21 21:58] VITALS: BP 146/89
== END 2021-10-21 21:58 | disposition home or self-care (01) ==
LOC: EDUNIT# 19:18 → ER FS 19:19
DX: R14.0 Abdominal distension (gaseous) (principal); R11.0 Nausea; R19.7 Diarrhea, unspecified
CPT/HCPCS: 36415; 74176; 80053; 81000; 83690; 85025